=== PATIENT | male | born 1960 | race Caucasian/White ===

== ENCOUNTER 2018-03-23 01:44 | Inpatient (IN) | payer MEDICARE ==
[2018-03-23 02:08] VITALS: BP 131/78
[2018-03-23] MEDS ORDERED: Magnesium Hydroxide (MOM) 30 mL UDC PO PRN (03:15)
[2018-03-23] MEDS ORDERED: Maalox 30 mL Cup PO PRN (03:15)
[2018-03-23] MEDS: INSULIN ASPART SLIDING SCALE 100 UNITS/ML UNIT SUBQ SCH ×4 (06:51→21:08)
[2018-03-23] MEDS ORDERED: LISINOPRIL 2.5 MG PO SCH (09:00)
[2018-03-23] MEDS ORDERED: UBIDECARENONE 200 MG PO SCH (09:00)
[2018-03-23] MEDS: Multivitamin Tab PO SCH (09:40)
[2018-03-23 12:25] LABS: CHOLESTEROL 173 mg/dL (<200); HDL -HIGH DENSITY LIPOPROTEIN 23 mg/dL (23-92); TRIGLYCERIDES 220 mg/dL (<150)
--- NOTE | 2018-03-23 17:06 | History & Physical ---
ADMIT DATE: 03/23/2018 HISTORY OF PRESENT ILLNESS: The patient is a 57-year-old male with long history of CVA, hypertension, diabetes mellitus, depression, admitted to [facility] under Dr. Naranjo Said for evaluation and treatment. The patient denies any chest pain, shortness of breath, nausea, vomiting, fever or chills. PAST MEDICAL HISTORY: Significant for diabetes mellitus, hypertension, CVA, depression. PAST SURGICAL HISTORY: No recent surgery. ALLERGIES: None. MEDICATIONS: Follow admission reconciliation. SOCIAL HISTORY: No smoking, no alcohol, no drugs. FAMILY HISTORY: Noncontributory. REVIEW OF SYSTEMS: RENAL SYSTEM: No history of chronic renal disorder. CARDIOVASCULAR SYSTEM: No coronary artery disease. ENDOCRINE SYSTEM: He has history of diabetes mellitus. GASTROINTESTINAL SYSTEM: No upper or lower gastrointestinal bleed. NEUROLOGICAL: He has history of stroke with right-sided hemiparesis and hemiplegia. HEMATOLOGIC SYSTEM: No bleeding tendencies. GENITOURINARY: No dysuria or hematuria. PHYSICAL EXAMINATION: GENERAL: He is awake, alert, mildly confused. VITAL SIGNS: Temperature 97.8, heart rate 82, blood pressure 106/75. HEENT: Normocephalic. Pupils reactive to light and accommodation. Sclerae clear. NECK: Supple. Negative for lymphadenopathy, JVD or bruit. CHEST: Bilaterally normal. No rhonchi or wheezing. HEART: S1, S2 normal. No gallop rhythm. ABDOMEN: Soft, bowel sounds positive. EXTREMITIES: No edema. NEUROLOGIC: He is awake, alert, mildly confused. He has left side weakness. ASSESSMENT: 1. Hypertension. 2. Diabetes mellitus. 3. CVA. 4. Hyperlipidemia. 5. Depression. PLAN: The patient admitted to the hospital under Dr. Naranjo's service. Medical problems addressed during hospitalization, depression, problem to be addressed at discharge, diabetes mellitus, hypertension, CVA. The patient is medically stable for activity. Thank you, Dr. Naranjo, for asking me to see your patient. JOB# [id number]
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
[2018-03-24] MEDS: INSULIN ASPART SLIDING SCALE 100 UNITS/ML UNIT SUBQ SCH ×6 (06:47→20:33)
[2018-03-24] MEDS: Escitalopram Oxalate 5 mg Tab PO SCH (09:16)
[2018-03-24] MEDS: Multivitamin Tab PO SCH (09:17)
--- NOTE | 2018-03-24 22:31 | Internal Medicine Prog Note ---
Internal Medicine Subjective - Subjective Service Date: 03/24/18 Patient seen and examined:: with staff Patient is:: awake, verbal, in bed, talking Per staff patient has:: no adverse event Internal Medicine Objective - Results Recent Labs: Laboratory Last Values Triglycerides 220 mg/dL (<150) H 03/23/18 12:02 Cholesterol 173 mg/dL (<200) 03/23/18 12:02 LDL Cholesterol Direct 98 mg/dL (75-193) 03/23/18 12:02 HDL Cholesterol 23 mg/dL (23-92) 03/23/18 12:02 - Physical Exam Vitals and I&O: Vital Signs Temp 98.5 F 03/24/18 15:41 Pulse 89 03/24/18 15:41 Resp 19 03/24/18 15:41 BP 119/81 03/24/18 15:41 Pulse Ox 96 03/24/18 15:41 Intake & Output 03/24/18 03/24/18 03/25/18 06:59 18:59 06:59 Intake Total 500 Balance 500 Intake: Oral 500 Other: # Voids 2 # Bowel Movements 1 Stool Characteristics Formed Active Medications: Current Medications Acetaminophen (Tylenol) 650 mg PO Q4HR PRN PRN Reason: Mild Pain / Temp above 100 Stop: 05/22/18 03:14 Last Admin: 03/23/18 21:34 Dose: 650 mg Al Hydrox/Mg Hydrox/Simethicone (Maalox) 30 ml PO Q4HR PRN PRN Reason: GI DISTRESS Stop: 05/22/18 03:14 Cilostazol (Pletal) 100 mg PO BID [facility] Stop: 05/22/18 08:59 Last Admin: 03/24/18 18:31 Dose: Not Given Clopidogrel Bisulfate (Plavix) 75 mg PO DAILY [facility] Stop: 05/22/18 08:59 Last Admin: 03/24/18 09:16 Dose: 75 mg Escitalopram Oxalate (Lexapro) 5 mg PO DAILY [facility]; Protocol Stop: 05/23/18 08:59 Last Admin: 03/24/18 09:16 Dose: 5 mg Insulin Aspart (Novolog Insulin Sliding Scale) 0 units SUBQ ACHS [facility]; Protocol Stop: 05/22/18 07:29 Last Admin: 03/24/18 20:33 Dose: 2 units Labetalol HCl (Trandate) 100 mg PO QPM [facility] Stop: 05/22/18 16:59 Last Admin: 03/24/18 18:31 Dose: Not Given Labetalol HCl (Trandate) 200 mg PO DAILY [facility] Stop: 05/22/18 08:59 Last Admin: 03/24/18 09:24 Dose: 200 mg Lisinopril (Zestril) 2.5 mg PO DAILY [facility] Stop: 05/22/18 08:59 Last Admin: 03/24/18 09:17 Dose: 2.5 mg Lorazepam (Ativan) 0.5 mg PO Q4HR PRN; Protocol PRN Reason: Anxiety Stop: 04/22/18 03:14 Magnesium Hydroxide (Milk Of Magnesia) 30 ml PO HS PRN PRN Reason: Constipation Miscellaneous (Dulaglutide [Trulicity]) 1.5 mg SUBQ QSAT [facility] Stop: 05/26/18 08:59 Multivitamins/Vitamin C (Theragran) 1 tab PO DAILY [facility] Stop: 05/22/18 08:59 Last Admin: 03/24/18 09:17 Dose: 1 tab Simvastatin (Zocor) 10 mg PO HS [facility] Stop: 05/22/18 20:59 Last Admin: 03/24/18 20:34 Dose: 10 mg Tramadol HCl (Ultram) 50 mg PO BID [facility] Stop: 05/22/18 08:59 Last Admin: 03/24/18 18:30 Dose: Not Given Trazodone HCl (Desyrel) 25 mg PO HS [facility]; Protocol Stop: 05/23/18 20:59 Last Admin: 03/24/18 20:32 Dose: 25 mg Zolpidem Tartrate (Ambien) 5 mg PO HS PRN PRN Reason: Insomnia Stop: 05/22/18 03:14 Last Admin: 03/24/18 20:34 Dose: 5 mg General: demented HEENT: NC/AT, PERRLA, EOMI, anicteric sclerae, throat clear Neck: Supple, No JVD, No thyromegaly, +2 carotid pulse wo bruit, No LAD Lungs: CTAB Cardiovascular: Normal S1, Normal S2, without murmur Abdomen: non-tender, non-distended Extremities: clear Neurological: no change Internal Medicine Assmt/Plan - Assessment Assessment: 1.DM. 2.HTN. 3.CVA. 4.PSYCHOSIS. - Plan Plan: CONTINUE ON CURRENT MEDICATION AND DIET.
[2018-03-25] MEDS: INSULIN ASPART SLIDING SCALE 100 UNITS/ML UNIT SUBQ SCH ×4 (06:52→21:17)
[2018-03-25] MEDS: Multivitamin Tab PO SCH (09:36)
[2018-03-25] MEDS: Escitalopram Oxalate 5 mg Tab PO SCH (09:36)
--- NOTE | 2018-03-25 23:41 | Internal Medicine Prog Note ---
Internal Medicine Subjective - Subjective Service Date: 03/25/18 Patient seen and examined:: without staff Patient is:: awake, verbal, in bed, talking Per staff patient has:: no adverse event Internal Medicine Objective - Results Recent Labs: Laboratory Last Values Triglycerides 220 mg/dL (<150) H 03/23/18 12:02 Cholesterol 173 mg/dL (<200) 03/23/18 12:02 LDL Cholesterol Direct 98 mg/dL (75-193) 03/23/18 12:02 HDL Cholesterol 23 mg/dL (23-92) 03/23/18 12:02 - Physical Exam Vitals and I&O: Vital Signs Temp 98.3 F 03/25/18 17:58 Pulse 82 03/25/18 17:58 Resp 20 03/25/18 17:58 BP 113/70 03/25/18 17:58 Pulse Ox 97 03/25/18 17:58 Active Medications: Current Medications Acetaminophen (Tylenol) 650 mg PO Q4HR PRN PRN Reason: Mild Pain / Temp above 100 Stop: 05/22/18 03:14 Last Admin: 03/23/18 21:34 Dose: 650 mg Al Hydrox/Mg Hydrox/Simethicone (Maalox) 30 ml PO Q4HR PRN PRN Reason: GI DISTRESS Stop: 05/22/18 03:14 Cilostazol (Pletal) 100 mg PO BID [facility] Stop: 05/22/18 08:59 Last Admin: 03/25/18 17:14 Dose: 100 mg Clopidogrel Bisulfate (Plavix) 75 mg PO DAILY [facility] Stop: 05/22/18 08:59 Last Admin: 03/25/18 09:36 Dose: 75 mg Escitalopram Oxalate (Lexapro) 5 mg PO DAILY [facility]; Protocol Stop: 05/23/18 08:59 Last Admin: 03/25/18 09:36 Dose: 5 mg Insulin Aspart (Novolog Insulin Sliding Scale) 0 units SUBQ ACHS [facility]; Protocol Stop: 05/22/18 07:29 Last Admin: 03/25/18 21:17 Dose: 4 units Labetalol HCl (Trandate) 100 mg PO QPM [facility] Stop: 05/22/18 16:59 Last Admin: 03/25/18 17:15 Dose: 100 mg Labetalol HCl (Trandate) 200 mg PO DAILY [facility] Stop: 05/22/18 08:59 Last Admin: 03/25/18 09:44 Dose: 200 mg Lisinopril (Zestril) 2.5 mg PO DAILY [facility] Stop: 05/22/18 08:59 Last Admin: 03/25/18 09:37 Dose: 2.5 mg Lorazepam (Ativan) 0.5 mg PO Q4HR PRN; Protocol PRN Reason: Anxiety Stop: 04/22/18 03:14 Magnesium Hydroxide (Milk Of Magnesia) 30 ml PO HS PRN PRN Reason: Constipation Miscellaneous (Dulaglutide [Trulicity]) 1.5 mg SUBQ QSAT [facility] Stop: 05/26/18 08:59 Multivitamins/Vitamin C (Theragran) 1 tab PO DAILY [facility] Stop: 05/22/18 08:59 Last Admin: 03/25/18 09:36 Dose: 1 tab Simvastatin (Zocor) 10 mg PO HS [facility] Stop: 05/22/18 20:59 Last Admin: 03/25/18 21:08 Dose: 10 mg Tramadol HCl (Ultram) 50 mg PO BID [facility] Stop: 05/22/18 08:59 Last Admin: 03/25/18 18:24 Dose: Not Given Zolpidem Tartrate (Ambien) 5 mg PO HS PRN PRN Reason: Insomnia Stop: 05/22/18 03:14 Last Admin: 03/25/18 21:08 Dose: 5 mg General: demented HEENT: NC/AT, PERRLA, EOMI, anicteric sclerae, throat clear Neck: Supple, No JVD, No thyromegaly, +2 carotid pulse wo bruit, No LAD Lungs: CTAB Cardiovascular: Normal S1, Normal S2, without murmur Abdomen: non-tender, non-distended Extremities: clear Neurological: no change Internal Medicine Assmt/Plan - Assessment Assessment: 1.DM. 2.HTN. 3.CVA. 4.PSYCHOSIS. - Plan Plan: CONTINUE ON CURRENT MEDICATION AND DIET.
[2018-03-26] MEDS: INSULIN ASPART SLIDING SCALE 100 UNITS/ML UNIT SUBQ SCH ×4 (06:57→20:58)
[2018-03-26] MEDS: Escitalopram Oxalate 5 mg Tab PO SCH (08:54)
[2018-03-26] MEDS: Multivitamin Tab PO SCH (08:55)
[2018-03-26] MEDS: Insulin Detemir 100 units/mL 10mL Vial SUBQ SCH (20:59)
--- NOTE | 2018-03-26 22:32 | Internal Medicine Prog Note ---
Internal Medicine Subjective - Subjective Service Date: 03/26/18 Patient seen and examined:: with staff Patient is:: awake, verbal, in bed, talking Per staff patient has:: no adverse event Internal Medicine Objective - Results Recent Labs: Laboratory Last Values Triglycerides 220 mg/dL (<150) H 03/23/18 12:02 Cholesterol 173 mg/dL (<200) 03/23/18 12:02 LDL Cholesterol Direct 98 mg/dL (75-193) 03/23/18 12:02 HDL Cholesterol 23 mg/dL (23-92) 03/23/18 12:02 - Physical Exam Vitals and I&O: Vital Signs Temp 97.9 F 03/26/18 14:00 Pulse 88 03/26/18 16:34 Resp 20 03/26/18 19:47 BP 96/68 03/26/18 16:34 Pulse Ox 96 03/26/18 14:00 Intake & Output 03/26/18 03/26/18 03/27/18 06:59 18:59 06:59 Intake Total 500 1600 Balance 500 1600 Intake: Oral 500 1600 Other: # Voids 3 4 # Bowel Movements 0 0 Active Medications: Current Medications Acetaminophen (Tylenol) 650 mg PO Q4HR PRN PRN Reason: Mild Pain / Temp above 100 Stop: 05/22/18 03:14 Last Admin: 03/23/18 21:34 Dose: 650 mg Al Hydrox/Mg Hydrox/Simethicone (Maalox) 30 ml PO Q4HR PRN PRN Reason: GI DISTRESS Stop: 05/22/18 03:14 Cilostazol (Pletal) 100 mg PO BID [facility] Stop: 05/22/18 08:59 Last Admin: 03/26/18 16:35 Dose: 100 mg Clopidogrel Bisulfate (Plavix) 75 mg PO DAILY [facility] Stop: 05/22/18 08:59 Last Admin: 03/26/18 08:56 Dose: 75 mg Escitalopram Oxalate (Lexapro) 5 mg PO DAILY [facility]; Protocol Stop: 05/23/18 08:59 Last Admin: 03/26/18 08:54 Dose: 5 mg Insulin Aspart (Novolog Insulin Sliding Scale) 0 units SUBQ ACHS [facility]; Protocol Stop: 05/22/18 07:29 Last Admin: 03/26/18 20:58 Dose: Not Given Insulin Detemir (Levemir Insulin) 10 units SUBQ HS [facility] Stop: 05/25/18 20:59 Last Admin: 03/26/18 20:59 Dose: 10 units Labetalol HCl (Trandate) 100 mg PO QPM [facility] Stop: 05/22/18 16:59 Last Admin: 03/26/18 16:34 Dose: Not Given Labetalol HCl (Trandate) 200 mg PO DAILY [facility] Stop: 05/22/18 08:59 Last Admin: 03/26/18 08:56 Dose: 200 mg Lisinopril (Zestril) 2.5 mg PO DAILY [facility] Stop: 05/22/18 08:59 Last Admin: 03/26/18 08:57 Dose: 2.5 mg Lorazepam (Ativan) 0.5 mg PO Q4HR PRN; Protocol PRN Reason: Anxiety Stop: 04/22/18 03:14 Magnesium Hydroxide (Milk Of Magnesia) 30 ml PO HS PRN PRN Reason: Constipation Multivitamins/Vitamin C (Theragran) 1 tab PO DAILY [facility] Stop: 05/22/18 08:59 Last Admin: 03/26/18 08:55 Dose: 1 tab Simvastatin (Zocor) 10 mg PO HS [facility] Stop: 05/22/18 20:59 Last Admin: 03/26/18 21:01 Dose: 10 mg Tramadol HCl (Ultram) 50 mg PO BID [facility] Stop: 05/22/18 08:59 Last Admin: 03/26/18 16:35 Dose: 50 mg Zolpidem Tartrate (Ambien) 5 mg PO HS PRN PRN Reason: Insomnia Stop: 05/22/18 03:14 Last Admin: 03/26/18 21:01 Dose: 5 mg General: demented HEENT: NC/AT, PERRLA, EOMI, anicteric sclerae, throat clear Neck: Supple, No JVD, No thyromegaly, +2 carotid pulse wo bruit, No LAD Lungs: CTAB Cardiovascular: Normal S1, Normal S2, without murmur Abdomen: non-tender, non-distended Extremities: clear Neurological: no change Internal Medicine Assmt/Plan - Assessment Assessment: 1.DM. 2.HTN. 3.CVA. 4.PSYCHOSIS. - Plan Plan: CONTINUE ON CURRENT MEDICATION AND DIET. Nutritional Asmnt/Malnutr-PDOC - Dietary Evaluation Malnutrition Findings (Please click <Entered> for more info): Nutritional Asmnt/Malnutrition Start: 03/26/18 12: 03 Text: Status: Complete Freq: Protocol: Document 03/26/18 12:03 CASSIDY (Rec: 03/26/18 12:10 [email or web address]) Nutritional Asmnt/Malnutrition Patient General Information Nutritional Screening Moderate Risk Diagnosis gravely disabled Pertinent Medical Hx/Surgical Hx Dm, HTN, CVA, depression Subjective Information Pt seen on wheelchair in his room, awake and alert. Pt provided food preference, no pork/chicken/beef, likes fish. Per EMR, PO intake 100%. Current Diet Order/ Nutrition Support cardiac, diabetic diet Pertinent Medications novolog, theragran Pertinent Labs 03/23 Triglycerides 220 Nutritional Hx/Data Height 1.78 m Height (Calculated Centimeters) 177.8 Current Weight (lbs) 95.708 kg Weight (Calculated Kilograms) 95.7 Weight (Calculated Grams) 27388.0 [place] Body Weight 166 Body Mass Index (BMI) 30.2 Weight Status Obese GI Symptoms GI Symptoms None Last BM 03/23 Difficult in: None Skin Integrity/Comment: intact Current %PO Good (75-100%) Estimated Nutritional Goals BEE in Kcals: Adj wt of IBW Calories/Kcals/Kg 25-30 Kcals Calculated 2591-2611 Protein: Adj wt of IBW Protein g/k Protein Calculated 81 Fluid: ml 2024-2430ml (1ml/kcal) Nutritional Problem No current Nutrition Prob Problem N/A Malnutrition Alert Is there a minimum of two criteria No selected? Query Text:Check all the applicable criteria. A minimum of two criteria are recommended for diagnosis of either severe or non-severe malnutrition. Malnutrition Related to Morbid Obesity Malnutrition related to morbid obesity No Intervention/Recommendation Comments 1. Continue with cardiac CCHO diet as ordered. Diet profile updated. 2. Monitor PO intake, wt, labs and skin integrity 3. F/U as low risk in 7 days, 04/02 Expected Outcomes/Goals Expected Outcomes/Goals 1. PO intake to meet at least 75% of nutritional needs. 2. Wt stability, skin to remain intact, labs to approach WNL. Reviewed by Francine Hernández RD
[2018-03-27] MEDS: INSULIN ASPART SLIDING SCALE 100 UNITS/ML UNIT SUBQ SCH ×4 (06:42→21:27)
[2018-03-27] MEDS ORDERED: DULAGLUTIDE 1.5 MG SUBQ SCH (09:00)
[2018-03-27] MEDS: Escitalopram Oxalate 5 mg Tab PO SCH (09:49)
[2018-03-27] MEDS: Multivitamin Tab PO SCH (09:50)
--- NOTE | 2018-03-27 18:04 | Internal Medicine Prog Note ---
Internal Medicine Subjective - Subjective Service Date: 03/27/18 Patient seen and examined:: with staff Patient is:: awake, verbal, in bed, talking Per staff patient has:: no adverse event Internal Medicine Objective - Results Recent Labs: Laboratory Last Values Triglycerides 220 mg/dL (<150) H 03/23/18 12:02 Cholesterol 173 mg/dL (<200) 03/23/18 12:02 LDL Cholesterol Direct 98 mg/dL (75-193) 03/23/18 12:02 HDL Cholesterol 23 mg/dL (23-92) 03/23/18 12:02 - Physical Exam Vitals and I&O: Vital Signs Temp 98.8 F 03/27/18 15:58 Pulse 78 03/27/18 16:18 Resp 20 03/27/18 15:58 BP 133/87 03/27/18 16:18 Pulse Ox 98 03/27/18 15:58 Intake & Output 03/26/18 03/27/18 03/27/18 18:59 06:59 18:59 Intake Total 1600 Balance 1600 Intake: Oral 1600 Other: # Voids 4 # Bowel Movements 0 Active Medications: Current Medications Acetaminophen (Tylenol) 650 mg PO Q4HR PRN PRN Reason: Mild Pain / Temp above 100 Stop: 05/22/18 03:14 Last Admin: 03/23/18 21:34 Dose: 650 mg Al Hydrox/Mg Hydrox/Simethicone (Maalox) 30 ml PO Q4HR PRN PRN Reason: GI DISTRESS Stop: 05/22/18 03:14 Cilostazol (Pletal) 100 mg PO BID [facility] Stop: 05/22/18 08:59 Last Admin: 03/27/18 16:18 Dose: 100 mg Clopidogrel Bisulfate (Plavix) 75 mg PO DAILY [facility] Stop: 05/22/18 08:59 Last Admin: 03/27/18 09:49 Dose: 75 mg Escitalopram Oxalate (Lexapro) 5 mg PO DAILY [facility]; Protocol Stop: 05/23/18 08:59 Last Admin: 03/27/18 09:49 Dose: 5 mg Insulin Aspart (Novolog Insulin Sliding Scale) 0 units SUBQ ACHS [facility]; Protocol Stop: 05/22/18 07:29 Last Admin: 03/27/18 16:17 Dose: 2 units Insulin Detemir (Levemir Insulin) 10 units SUBQ HS [facility] Stop: 05/25/18 20:59 Last Admin: 03/26/18 20:59 Dose: 10 units Labetalol HCl (Trandate) 100 mg PO QPM [facility] Stop: 05/22/18 16:59 Last Admin: 03/27/18 16:18 Dose: 100 mg Labetalol HCl (Trandate) 200 mg PO DAILY [facility] Stop: 05/22/18 08:59 Last Admin: 03/27/18 09:42 Dose: 200 mg Lisinopril (Zestril) 2.5 mg PO DAILY [facility] Stop: 05/22/18 08:59 Last Admin: 03/27/18 09:49 Dose: 2.5 mg Lorazepam (Ativan) 0.5 mg PO Q4HR PRN; Protocol PRN Reason: Anxiety Stop: 04/22/18 03:14 Magnesium Hydroxide (Milk Of Magnesia) 30 ml PO HS PRN PRN Reason: Constipation Multivitamins/Vitamin C (Theragran) 1 tab PO DAILY [facility] Stop: 05/22/18 08:59 Last Admin: 03/27/18 09:50 Dose: 1 tab Simvastatin (Zocor) 10 mg PO HS [facility] Stop: 05/22/18 20:59 Last Admin: 03/26/18 21:01 Dose: 10 mg Tramadol HCl (Ultram) 50 mg PO BID [facility] Stop: 05/22/18 08:59 Last Admin: 03/27/18 16:18 Dose: 50 mg Zolpidem Tartrate (Ambien) 5 mg PO HS PRN PRN Reason: Insomnia Stop: 05/22/18 03:14 Last Admin: 03/26/18 21:01 Dose: 5 mg General: demented HEENT: NC/AT, PERRLA, EOMI, anicteric sclerae, throat clear Neck: Supple, No JVD, No thyromegaly, +2 carotid pulse wo bruit, No LAD Lungs: CTAB Cardiovascular: Normal S1, Normal S2, without murmur Abdomen: non-tender, non-distended Extremities: clear Neurological: no change Internal Medicine Assmt/Plan - Assessment Assessment: 1.DM. 2.HTN. 3.CVA. 4.PSYCHOSIS. - Plan Plan: CONTINUE ON CURRENT MEDICATION AND DIET. Nutritional Asmnt/Malnutr-PDOC - Dietary Evaluation Malnutrition Findings (Please click <Entered> for more info): Nutritional Asmnt/Malnutrition Start: 03/26/18 12: 03 Text: Status: Complete Freq: Protocol: Document 03/26/18 12:03 CASSIDY (Rec: 03/26/18 12:10 [email or web address]) Nutritional Asmnt/Malnutrition Patient General Information Nutritional Screening Moderate Risk Diagnosis gravely disabled Pertinent Medical Hx/Surgical Hx Dm, HTN, CVA, depression Subjective Information Pt seen on wheelchair in his room, awake and alert. Pt provided food preference, no pork/chicken/beef, likes fish. Per EMR, PO intake 100%. Current Diet Order/ Nutrition Support cardiac, diabetic diet Pertinent Medications novolog, theragran Pertinent Labs 03/23 Triglycerides 220 Nutritional Hx/Data Height 1.78 m Height (Calculated Centimeters) 177.8 Current Weight (lbs) 95.708 kg Weight (Calculated Kilograms) 95.7 Weight (Calculated Grams) 50906.0 [place] Body Weight 166 Body Mass Index (BMI) 30.2 Weight Status Obese GI Symptoms GI Symptoms None Last BM 03/23 Difficult in: None Skin Integrity/Comment: intact Current %PO Good (75-100%) Estimated Nutritional Goals BEE in Kcals: Adj wt of IBW Calories/Kcals/Kg 25-30 Kcals Calculated 5436-8173 Protein: Adj wt of IBW Protein g/k Protein Calculated 81 Fluid: ml 5-2430ml (1ml/kcal) Nutritional Problem No current Nutrition Prob Problem N/A Malnutrition Alert Is there a minimum of two criteria No selected? Query Text:Check all the applicable criteria. A minimum of two criteria are recommended for diagnosis of either severe or non-severe malnutrition. Malnutrition Related to Morbid Obesity Malnutrition related to morbid obesity No Intervention/Recommendation Comments 1. Continue with cardiac CCHO diet as ordered. Diet profile updated. 2. Monitor PO intake, wt, labs and skin integrity 3. F/U as low risk in 7 days, 04/02 Expected Outcomes/Goals Expected Outcomes/Goals 1. PO intake to meet at least 75% of nutritional needs. 2. Wt stability, skin to remain intact, labs to approach WNL. Reviewed by Francine Hernández RD
[2018-03-27] MEDS: Insulin Detemir 100 units/mL 10mL Vial SUBQ SCH (21:28)
[2018-03-28] MEDS: INSULIN ASPART SLIDING SCALE 100 UNITS/ML UNIT SUBQ SCH ×4 (06:57→21:28)
[2018-03-28] MEDS: Escitalopram Oxalate 5 mg Tab PO SCH (09:08)
[2018-03-28] MEDS: Multivitamin Tab PO SCH (09:10)
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
--- NOTE | 2018-03-28 18:57 | Internal Medicine Prog Note ---
Internal Medicine Subjective - Subjective Service Date: 03/28/18 Patient seen and examined:: with staff Patient is:: awake, verbal, in bed, talking Per staff patient has:: no adverse event Internal Medicine Objective - Results Recent Labs: Laboratory Last Values Triglycerides 220 mg/dL (<150) H 03/23/18 12:02 Cholesterol 173 mg/dL (<200) 03/23/18 12:02 LDL Cholesterol Direct 98 mg/dL (75-193) 03/23/18 12:02 HDL Cholesterol 23 mg/dL (23-92) 03/23/18 12:02 - Physical Exam Vitals and I&O: Vital Signs Temp 98.0 F 03/28/18 14:00 Pulse 79 03/28/18 17:04 Resp 18 03/28/18 14:00 BP 123/63 03/28/18 17:04 Pulse Ox 97 03/28/18 14:00 Intake & Output 03/27/18 03/28/18 03/28/18 18:59 06:59 18:59 Intake Total 480 Balance 480 Intake: Oral 480 Other: # Voids 2 Active Medications: Current Medications Acetaminophen (Tylenol) 650 mg PO Q4HR PRN PRN Reason: Mild Pain / Temp above 100 Stop: 05/22/18 03:14 Last Admin: 03/23/18 21:34 Dose: 650 mg Al Hydrox/Mg Hydrox/Simethicone (Maalox) 30 ml PO Q4HR PRN PRN Reason: GI DISTRESS Stop: 05/22/18 03:14 Alprazolam (Xanax) 0.5 mg PO HS PRN; Protocol PRN Reason: Anxiety Stop: 05/27/18 20:59 Cilostazol (Pletal) 100 mg PO BID [facility] Stop: 05/22/18 08:59 Last Admin: 03/28/18 17:04 Dose: 100 mg Clopidogrel Bisulfate (Plavix) 75 mg PO DAILY [facility] Stop: 05/22/18 08:59 Last Admin: 03/28/18 09:08 Dose: 75 mg Escitalopram Oxalate (Lexapro) 5 mg PO DAILY [facility]; Protocol Stop: 05/23/18 08:59 Last Admin: 03/28/18 09:08 Dose: 5 mg Insulin Aspart (Novolog Insulin Sliding Scale) 0 units SUBQ ACHS [facility]; Protocol Stop: 05/22/18 07:29 Last Admin: 03/28/18 17:03 Dose: 2 units Insulin Detemir (Levemir Insulin) 10 units SUBQ HS [facility] Stop: 05/25/18 20:59 Last Admin: 03/27/18 21:28 Dose: 10 units Labetalol HCl (Trandate) 100 mg PO QPM [facility] Stop: 05/22/18 16:59 Last Admin: 03/28/18 17:04 Dose: 100 mg Labetalol HCl (Trandate) 200 mg PO DAILY [facility] Stop: 05/22/18 08:59 Last Admin: 03/28/18 09:08 Dose: 200 mg Lisinopril (Zestril) 2.5 mg PO DAILY [facility] Stop: 05/22/18 08:59 Last Admin: 03/28/18 09:10 Dose: 2.5 mg Lorazepam (Ativan) 0.5 mg PO Q4HR PRN; Protocol PRN Reason: Anxiety Stop: 04/22/18 03:14 Multivitamins/Vitamin C (Theragran) 1 tab PO DAILY [facility] Stop: 05/22/18 08:59 Last Admin: 03/28/18 09:10 Dose: 1 tab Simvastatin (Zocor) 10 mg PO HS [facility] Stop: 05/22/18 20:59 Last Admin: 03/27/18 21:29 Dose: 10 mg Tramadol HCl (Ultram) 50 mg PO BID [facility] Stop: 05/22/18 08:59 Last Admin: 03/28/18 17:04 Dose: 50 mg Zolpidem Tartrate (Ambien) 5 mg PO HS PRN PRN Reason: Insomnia Stop: 05/22/18 03:14 Last Admin: 03/27/18 21:29 Dose: 5 mg General: demented HEENT: NC/AT, PERRLA, EOMI, anicteric sclerae, throat clear Neck: Supple, No JVD, No thyromegaly, +2 carotid pulse wo bruit, No LAD Lungs: CTAB Cardiovascular: Normal S1, Normal S2, without murmur Abdomen: non-tender, non-distended Extremities: clear Neurological: no change Internal Medicine Assmt/Plan - Assessment Assessment: 1.DM. 2.HTN. 3.CVA. 4.PSYCHOSIS. - Plan Plan: CONTINUE ON CURRENT MEDICATION AND DIET. Nutritional Asmnt/Malnutr-PDOC - Dietary Evaluation Malnutrition Findings (Please click <Entered> for more info): Nutritional Asmnt/Malnutrition Start: 03/26/18 12: 03 Text: Status: Complete Freq: Protocol: Document 03/26/18 12:03 CASSIDY (Rec: 03/26/18 12:10 [email or web address] [id number]) Nutritional Asmnt/Malnutrition Patient General Information Nutritional Screening Moderate Risk Diagnosis gravely disabled Pertinent Medical Hx/Surgical Hx Dm, HTN, CVA, depression Subjective Information Pt seen on wheelchair in his room, awake and alert. Pt provided food preference, no pork/chicken/beef, likes fish. Per EMR, PO intake 100%. Current Diet Order/ Nutrition Support cardiac, diabetic diet Pertinent Medications novolog, theragran Pertinent Labs 03/23 Triglycerides 220 Nutritional Hx/Data Height 1.78 m Height (Calculated Centimeters) 177.8 Current Weight (lbs) 95.708 kg Weight (Calculated Kilograms) 95.7 Weight (Calculated Grams) 10479.0 [place] Body Weight 166 Body Mass Index (BMI) 30.2 Weight Status Obese GI Symptoms GI Symptoms None Last BM 03/23 Difficult in: None Skin Integrity/Comment: intact Current %PO Good (75-100%) Estimated Nutritional Goals BEE in Kcals: Adj wt of IBW Calories/Kcals/Kg 25-30 Kcals Calculated 0591-8808 Protein: Adj wt of IBW Protein g/k Protein Calculated 81 Fluid: ml 2024-2430ml (1ml/kcal) Nutritional Problem No current Nutrition Prob Problem N/A Malnutrition Alert Is there a minimum of two criteria No selected? Query Text:Check all the applicable criteria. A minimum of two criteria are recommended for diagnosis of either severe or non-severe malnutrition. Malnutrition Related to Morbid Obesity Malnutrition related to morbid obesity No Intervention/Recommendation Comments 1. Continue with cardiac CCHO diet as ordered. Diet profile updated. 2. Monitor PO intake, wt, labs and skin integrity 3. F/U as low risk in 7 days, 04/02 Expected Outcomes/Goals Expected Outcomes/Goals 1. PO intake to meet at least 75% of nutritional needs. 2. Wt stability, skin to remain intact, labs to approach WNL. Reviewed by Francine Hernández RD
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
[2018-03-28] MEDS: Insulin Detemir 100 units/mL 10mL Vial SUBQ SCH (21:30)
--- NOTE | 2018-03-28 21:39 | Progress Notes ---
DATE: 03/27/2018 SUBJECTIVE: Chart reviewed and the patient interviewed. Also, discussed the patient's condition with the staff and reviewed records and labs. The patient did not leave the hospital because the patient was not discharged yesterday to [facility] as planned. The patient is still anxious and is still depressed and he is disappointed for not leaving the hospital and not going to either [facility] or to his home. At the same time, the patient is cooperative and compliant with taking his medications with no side effects of medications. ASSESSMENT: The patient is still depressed. TREATMENT PLAN: Continue to monitor his behavior and continue to work on discharge plans and on placement issue. JOB# [id number]
--- NOTE | 2018-03-28 21:55 | Progress Notes ---
DATE: 03/28/2018 SUBJECTIVE: Chart reviewed and the patient interviewed. Also, discussed the patient's condition with the staff and reviewed records and labs. The patient is still anxious and he is still in a depressed mood. The patient also said that his anxiety level increased at night and that affects his sleep and he is not able to sleep at night. He said that Ambien is not helping. He used to take Xanax at night. Otherwise, the patient is cooperative and compliant with taking medications with no side effects. ASSESSMENT: The patient is still depressed and waiting for placement. TREATMENT PLAN: We will add Xanax dose of 0.5 mg at bedtime. Also, continue to work on discharge plans and placement issue. JOB# [id number]
[2018-03-29] MEDS: INSULIN ASPART SLIDING SCALE 100 UNITS/ML UNIT SUBQ SCH ×3 (06:41→16:46)
[2018-03-29] MEDS: Escitalopram Oxalate 5 mg Tab PO SCH (09:48)
[2018-03-29] MEDS: Multivitamin Tab PO SCH (09:48)
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
== END 2018-03-29 17:55 | DRG 885 ==
LOC: GERO2 01:44
PROVIDERS: ADMIT Psychiatry & Neurology Psychiatry; ATTEND Psychiatry & Neurology Psychiatry
DX: F33.2 Major depressive disorder, recurrent severe without psychotic features (principal); I69.354 Hemiplegia and hemiparesis following cerebral infarction affecting left non-dominant side; E11.9 Type 2 diabetes mellitus without complications; I10 Essential (primary) hypertension; G47.00 Insomnia, unspecified; E78.5 Hyperlipidemia, unspecified; F41.9 Anxiety disorder, unspecified; Z91.041 Radiographic dye allergy status; Z79.4 Long term (current) use of insulin
CPT/HCPCS: 36415-UA; 80061-TC; 83036-90; J1815; Z7610

== ENCOUNTER 2018-12-16 19:19 | Emergency (ER) | payer MEDICARE, MEDICAID ==
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
== END 2018-12-16 21:46 | disposition home or self-care (01) ==
LOC: ER 19:19
DX: R45.6 Violent behavior (principal); Z86.73 Personal history of transient ischemic attack (TIA), and cerebral infarction without residual deficits; Z91.041 Radiographic dye allergy status
CPT/HCPCS: Z7502

== ENCOUNTER 2018-12-20 11:50 | Inpatient (IN) | payer MEDICARE, MEDICAID ==
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
[2018-12-20 15:09] LABS: URINE SOURCE CLEAN C
[2018-12-20 15:12] LABS: URINE BILIRUBIN NEGATIVE (NEGATIVE); URINE BLOOD NEGATIVE (NEGATIVE); URINE GLUCOSE (UA) NEGATIVE (NEGATIVE); URINE KETONE NEGATIVE (NEGATIVE); URINE LEUKOCYTE ESTERASE NEGATIVE (NEGATIVE); URINE NITRATE NEGATIVE (NEGATIVE); URINE PH 6.5 (4.6 - 8.0); URINE PROTEIN NEGATIVE (NEGATIVE)
[2018-12-20 15:29] LABS: URINE CLARITY CLEAR (CLEAR); URINE COLOR YELLOW; URINE MICROSCOPIC INDICATED? YES
[2018-12-20 15:38] LABS: URINE BACTERIA FEW /hpf (NONE SEEN); URINE EPITHELIAL CELLS FEW /lpf (FEW); URINE RBC 0-2 /hpf (0-5); URINE WBC 0-2 /hpf (0-5)
[2018-12-20 15:39] LABS: % BASOPHILS 3.2 % (0.0-2.0); % EOSINOPHILS 3.8 % (0.0-5.0); % LYMPHOCYTES 28.9 % (20.0-50.0); % MONOCYTES 10.4 % (2.0-10.0); % NEUTROPHILS 53.7 % (40.0-80.0); BASOPHILE ABSOLUTE 0.3 Th/cumm (0-0.2); EOSINOPHILE ABSOLUTE 0.3 Th/cmm (0.1-0.4); HEMATOCRIT 43.8 % (41.0-60); HEMOGLOBIN 14.5 gm/dL (12-16); LYMPHOCYTE ABSOLUTE 2.7 Th/cmm (1.5-3.0); MEAN CELL VOLUME 89.3 fl (80-99); MEAN CORPUSCULAR HEMOGLOBIN 29.6 pg (26.0-30.0); MEAN CORPUSCULAR HGB CONC 33.2 pg (28.0-36.0); NEUTROPHILE ABSOLUTE 4.9 Th/cmm (1.8-8.0); PLATELET COUNT 347 Th/cmm (150-400); RED BLOOD COUNT 4.91 Mil/cmm (4.30-5.70); RED CELL DISTRIBUTION WIDTH 13.2 % (11.5-20.0); WHITE BLOOD COUNT 9.2 Th/cmm (4.8-10.8)
[2018-12-20 15:54] LABS: INR 1.06 (0.5-1.4)
[2018-12-20 15:57] LABS: ALB/GLOB RATIO 1.3 (1.0-1.8); ALKALINE PHOSPHATASE 62 U/L (34-104); ANION GAP 11.6 (7.0-16.0); BILIRUBIN,TOTAL 0.6 mg/dL (0.3-1.0); BUN - UREA NITROGEN 18 mg/dL (7-25); CALCIUM SERUM 9.4 mg/dL (8.6-10.3); CARBON DIOXIDE 25.3 mEq/L (21.0-31.0); CHLORIDE 104 mEq/L (98-107); GFR AFRICAN-AMERICAN > 60.0 ml/min (>90); GFR NON AFRICAN-AMERICAN > 60.0 ml/min; GLUCOSE 127 mg/dL (70-105); POTASSIUM SERUM 3.9 mEq/L (3.5-5.1); SGOT 13 U/L (13-39); SGPT/ALT 15 U/L (7-52); SODIUM SERUM 137 mEq/L (136-145); TOTAL PROTEIN,SERUM 7.2 gm/dL (6.0-8.3)
[2018-12-20] MEDS ORDERED: Magnesium Hydroxide (MOM) 30 mL UDC PO PRN ×2 (17:31→21:03)
[2018-12-20] MEDS ORDERED: Maalox 30 mL Cup PO PRN ×2 (17:31→21:03)
[2018-12-20 18:08] VITALS: BP 134/75
[2018-12-20 19:27] LABS: CHOLESTEROL 145 mg/dL (<200); HDL -HIGH DENSITY LIPOPROTEIN 26 mg/dL (23-92); TRIGLYCERIDES 118 mg/dL (<150)
[2018-12-20] MEDS ORDERED: Fluticasone Propionate Nasal 1 SPR SPR NS PRN (21:03)
[2018-12-20] MEDS ORDERED: GLUCAGON HCl 1 MG KIT IM PRN ×2 (21:03→21:09)
[2018-12-20] MEDS ORDERED: [UNRECOGNIZED DRUG - OTHER] PO PRN (21:03)
[2018-12-20] MEDS ORDERED: Dextrose 50% 50 mL Abboject IVP PRN (21:09)
--- NOTE | 2018-12-20 21:33 | History & Physical ---
ADMIT DATE: 12/20/2018 HISTORY OF PRESENT ILLNESS: The patient is a 58-year-old male with long history of hypertension, diabetes mellitus, CVA with left hemiplegia, depression, resident at [place], transferred to [facility], admitted to the [facility] for evaluation and treatment. The patient denies any chest pain, shortness of breath, nausea, vomiting, fever or chills. PAST MEDICAL HISTORY: Significant for hypertension, diabetes mellitus, CVA with left-sided hemiplegia, depression. PAST SURGICAL HISTORY: No recent surgery. ALLERGIES: ALLERGIC TO IODINATED CONTRAST. MEDICATIONS: Follow admission reconciliation. SOCIAL HISTORY: No smoking, no alcohol, no drug. FAMILY HISTORY: Noncontributory. REVIEW OF SYSTEMS: RENAL SYSTEM: No history of chronic renal disorder. CARDIOVASCULAR SYSTEM: He has a history of hypertension. ENDOCRINE SYSTEM: He has diabetes mellitus. GASTROINTESTINAL SYSTEM: No upper or lower gastrointestinal bleed. NEUROLOGICAL: He has history of CVA with left-sided hemiplegia. RESPIRATORY SYSTEM: No asthma. GENITOURINARY SYSTEM: No dysuria or hematuria. PHYSICAL EXAMINATION: GENERAL: He is awake, alert. VITAL SIGNS: Temperature is 97.8, heart rate 94, blood pressure 134/75. HEENT: Normocephalic. Pupils reactive to light and accommodation. Sclerae clear. NECK: Supple. Negative for lymphadenopathy, JVD or bruit. CHEST: Bilateral normal. No rhonchi or wheezing. HEART: S1, S2 normal. No murmur or gallop. ABDOMEN: Soft, bowel sounds positive. EXTREMITIES: No edema. NEUROLOGIC: He is awake, alert, mildly confused. He has left-sided weakness. LABORATORY DATA: White blood cell 9.2, hemoglobin 14.5, hematocrit 43.8, platelets 347. INR 1.06. Sodium 137, potassium 3.9, BUN 18, creatinine 1.0. ASSESSMENT: 1. Diabetes mellitus. 2. Hypertension. 3. Cerebrovascular accident. 4. History of major depression. PLAN: The patient admitted to the hospital under Dr. Naranjo's service. MEDICAL PROBLEM ADDRESSED DURING THIS HOSPITALIZATION: Depression. MEDICAL PROBLEMS ADDRESSED AT DISCHARGE: Diabetes mellitus, hypertension, and CVA. The patient is medically stable for activity. Thank you, Dr. Naranjo, for asking me to see your patient. The patient is a full code. JOB# [id number]
[2018-12-21 06:05] LABS: A1C 6.4 % (4.8-5.6)
[2018-12-21] MEDS: INSULIN LISPRO SLIDING SCALE 100 UNITS/ML UNIT SUBQ SCH ×4 (06:39→20:56)
[2018-12-21 06:42] LABS: % BASOPHILS 0.4 % (0.0-2.0); % EOSINOPHILS 4.1 % (0.0-5.0); % LYMPHOCYTES 28.8 % (20.0-50.0); % NEUTROPHILS 56.7 % (40.0-80.0); EOSINOPHILE ABSOLUTE 0.4 Th/cmm (0.1-0.4); HEMATOCRIT 42.4 % (41.0-60); HEMOGLOBIN 14.1 gm/dL (12-16); LYMPHOCYTE ABSOLUTE 2.5 Th/cmm (1.5-3.0); MEAN CORPUSCULAR HGB CONC 33.4 pg (28.0-36.0); MONOCYTE ABSOLUTE 0.9 Th/cmm (0.3-1.0); NEUTROPHILE ABSOLUTE 4.8 Th/cmm (1.8-8.0); PLATELET COUNT 327 Th/cmm (150-400); RED BLOOD COUNT 4.71 Mil/cmm (4.30-5.70); RED CELL DISTRIBUTION WIDTH 13.2 % (11.5-20.0); WHITE BLOOD COUNT 8.6 Th/cmm (4.8-10.8)
[2018-12-21 07:11] LABS: ALB/GLOB RATIO 1.2 (1.0-1.8); ALBUMIN 3.8 gm/dL (4.2-5.5); ALKALINE PHOSPHATASE 57 U/L (34-104); ANION GAP 12.5 (7.0-16.0); BILIRUBIN,TOTAL 0.5 mg/dL (0.3-1.0); BUN - UREA NITROGEN 17 mg/dL (7-25); CALCIUM SERUM 9.2 mg/dL (8.6-10.3); CARBON DIOXIDE 24.4 mEq/L (21.0-31.0); CHLORIDE 104 mEq/L (98-107); CREATININE - SERUM 1.1 mg/dL (0.7-1.3); GFR AFRICAN-AMERICAN > 60.0 ml/min (>90); GFR NON AFRICAN-AMERICAN > 60.0 ml/min; GLUCOSE 142 mg/dL (70-105); POTASSIUM SERUM 3.9 mEq/L (3.5-5.1); SGOT 12 U/L (13-39); SGPT/ALT 12 U/L (7-52); SODIUM SERUM 137 mEq/L (136-145); TOTAL PROTEIN,SERUM 6.9 gm/dL (6.0-8.3)
[2018-12-21] MEDS ORDERED: UBIDECARENONE 200 MG PO SCH (09:00)
[2018-12-21] MEDS ORDERED: Non-Formulary Item 1 EA (Sertraline Hcl [Zoloft] 100 MG) PO SCH (09:00)
[2018-12-21] MEDS: Multivitamin Tab PO SCH (09:31)
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
[2018-12-21] MEDS: Lactulose 10 Gm/15 mL 30mL UDC PO SCH (20:35)
[2018-12-21] MEDS: Insulin Glargine 100 units/ml 10ml Vial SUBQ SCH (20:50)
[2018-12-21] MEDS ORDERED: FLUTICASONE PROPIONATE 50 MCG IH SCH (21:00)
--- NOTE | 2018-12-21 21:37 | Internal Medicine Prog Note ---
Internal Medicine Subjective - Subjective Service Date: 12/21/18 Patient seen and examined:: without staff (HE FEELS WELL) Patient is:: awake, verbal, in bed, talking Per staff patient has:: no adverse event Internal Medicine Objective - Results Result Diagrams: 12/21/18 06:30 12/21/18 06:30 Recent Labs: Laboratory Last Values WBC 8.6 Th/cmm (4.8-10.8) 12/21/18 06:30 RBC 4.71 Mil/cmm (4.30-5.70) 12/21/18 06:30 Hgb 14.1 gm/dL (12-16) 12/21/18 06:30 Hct 42.4 % (41.0-60) 12/21/18 06:30 MCV 90.0 fl (80-99) 12/21/18 06:30 MCH 30.0 pg (26.0-30.0) 12/21/18 06:30 MCHC Differential 33.4 pg (28.0-36.0) 12/21/18 06:30 RDW 13.2 % (11.5-20.0) 12/21/18 06:30 Plt Count 327 Th/cmm (150-400) 12/21/18 06:30 MPV 6.9 fl 12/21/18 06:30 Neutrophils % 56.7 % (40.0-80.0) 12/21/18 06:30 Lymphocytes % 28.8 % (20.0-50.0) 12/21/18 06:30 Monocytes % 10.0 % (2.0-10.0) 12/21/18 06:30 Eosinophils % 4.1 % (0.0-5.0) 12/21/18 06:30 Basophils % 0.4 % (0.0-2.0) 12/21/18 06:30 PT 11.0 SECONDS (9.5-11.5) 12/20/18 15:30 INR 1.06 (0.5-1.4) 12/20/18 15:30 PTT (Actin FS) 29.6 SECONDS (26.0-38.0) 12/20/18 15:30 Sodium 137 mEq/L (136-145) 12/21/18 06:30 Potassium 3.9 mEq/L (3.5-5.1) 12/21/18 06:30 Chloride 104 mEq/L (98-107) 12/21/18 06:30 Carbon Dioxide 24.4 mEq/L (21.0-31.0) 12/21/18 06:30 Anion Gap 12.5 (7.0-16.0) 12/21/18 06:30 BUN 17 mg/dL (7-25) 12/21/18 06:30 Creatinine 1.1 mg/dL (0.7-1.3) 12/21/18 06:30 Est GFR ( Amer) > 60.0 ml/min (>90) 12/21/18 06:30 Est GFR (Non-Af Amer) > 60.0 ml/min 12/21/18 06:30 BUN/Creatinine Ratio 15.5 12/21/18 06:30 Glucose 142 mg/dL (70-105) H 12/21/18 06:30 POC Glucose 118 MG/DL (70 - 105) H 12/21/18 20:44 Calcium 9.2 mg/dL (8.6-10.3) 12/21/18 06:30 Total Bilirubin 0.5 mg/dL (0.3-1.0) 12/21/18 06:30 AST 12 U/L (13-39) L 12/21/18 06:30 ALT 12 U/L (7-52) 12/21/18 06:30 Alkaline Phosphatase 57 U/L (34-104) 12/21/18 06:30 Total Protein 6.9 gm/dL (6.0-8.3) 12/21/18 06:30 Albumin 3.8 gm/dL (4.2-5.5) L 12/21/18 06:30 Globulin 3.1 gm/dL 12/21/18 06:30 Albumin/Globulin Ratio 1.2 (1.0-1.8) 12/21/18 06:30 Triglycerides 118 mg/dL (<150) 12/20/18 18:50 Cholesterol 145 mg/dL (<200) 12/20/18 18:50 LDL Cholesterol Direct 100 mg/dL (75-193) 12/20/18 18:50 HDL Cholesterol 26 mg/dL (23-92) 12/20/18 18:50 Urine Source CLEAN C 12/20/18 14:45 Urine Color YELLOW 12/20/18 14:45 Urine Clarity CLEAR (CLEAR) 12/20/18 14:45 Urine pH 6.5 (4.6 - 8.0) 12/20/18 14:45 Ur Specific [place] 1.015 (1.005-1.030) 12/20/18 14:45 Urine Protein NEGATIVE mg/dL (NEGATIVE) 12/20/18 14:45 Urine Glucose (UA) NEGATIVE mg/dL (NEGATIVE) 12/20/18 14:45 Urine Ketones NEGATIVE mg/dL (NEGATIVE) 12/20/18 14:45 Urine Blood NEGATIVE (NEGATIVE) 12/20/18 14:45 Urine Nitrate NEGATIVE (NEGATIVE) 12/20/18 14:45 Urine Bilirubin NEGATIVE (NEGATIVE) 12/20/18 14:45 Urine Urobilinogen 1.0 E.U./dL (0.2 - 1.0) 12/20/18 14:45 Ur Leukocyte Esterase NEGATIVE (NEGATIVE) 12/20/18 14:45 Urine RBC 0-2 /hpf (0-5) H 12/20/18 14:45 Urine WBC 0-2 /hpf (0-5) 12/20/18 14:45 Ur Epithelial Cells FEW /lpf (FEW) 12/20/18 14:45 Urine Bacteria FEW /hpf (NONE SEEN) 12/20/18 14:45 Urine Mucus FEW /lpf (FEW) 12/20/18 14:45 - Physical Exam Vitals and I&O: Vital Signs Temp 98.1 F 12/21/18 20:15 Pulse 91 12/21/18 20:38 Resp 18 12/21/18 20:15 BP 119/87 12/21/18 20:38 Pulse Ox 98 12/21/18 20:15 Intake & Output 12/21/18 12/21/18 12/22/18 06:59 18:59 06:59 Intake Total 240 Balance 240 Intake: Oral 240 Other: # Voids 1 Stool Characteristics Soft Active Medications: Current Medications Acetaminophen (Tylenol) 650 mg PO Q4HR PRN PRN Reason: Mild Pain / Temp above 100 Stop: 02/18/19 17:30 Last Admin: 12/21/18 20:56 Dose: 650 mg Al Hydrox/Mg Hydrox/Simethicone (Maalox) 30 ml PO Q4HR PRN PRN Reason: GI DISTRESS Stop: 02/18/19 17:30 Aripiprazole (Abilify) 2 mg PO DAILY [facility]; Protocol Stop: 02/19/19 08:59 Last Admin: 12/21/18 10:52 Dose: Not Given Cilostazol (Pletal) 100 mg PO BID [facility] Stop: 02/19/19 08:59 Last Admin: 12/21/18 10:52 Dose: Not Given Clopidogrel Bisulfate (Plavix) 75 mg PO DAILY [facility] Stop: 02/19/19 08:59 Last Admin: 12/21/18 09:32 Dose: 75 mg Dextrose (D50w) 50 ml IVP PRN PRN PRN Reason: Blood Glucose less than 70 Stop: 02/18/19 21:08 Dextrose (Glutose 40%) 18.75 gm PO PRN PRN PRN Reason: Blood Glucose less than 70 Stop: 02/18/19 21:08 Docusate Sodium (Colace) 250 mg PO QPM [facility] Stop: 02/19/19 16:59 Last Admin: 12/21/18 17:00 Dose: 250 mg Doxepin HCl (Sinequan) 50 mg PO [facility] Stop: 02/19/19 20:59 Last Admin: 12/21/18 20:36 Dose: 50 mg Fluticasone Propionate (Flonase) 2 spr NS DAILY PRN PRN Reason: ALLERGIC RHINITIS Stop: 02/18/19 21:02 Glucagon (Glucagen) 1 mg IM PRN PRN PRN Reason: Blood Glucose less than 70 Stop: 02/18/19 21:08 Insulin Glargine (Lantus Insulin) 10 units SUBQ [facility] Stop: 02/19/19 20:59 Last Admin: 12/21/18 20:50 Dose: 10 unit Insulin Human Lispro (Humalog Insulin Sliding Scale) 0 units SUBQ [facility]; Protocol Stop: 02/19/19 07:29 Last Admin: 12/21/18 20:56 Dose: Not Given Labetalol HCl (Trandate) 100 mg PO [facility] Stop: 02/19/19 20:59 Last Admin: 12/21/18 20:38 Dose: 100 mg Lactulose (Cephulac) 20 gm PO [facility] Stop: 02/19/19 20:59 Last Admin: 12/21/18 20:35 Dose: 20 gm Lisinopril (Zestril) 2.5 mg PO DAILY [facility] Stop: 02/19/19 08:59 Last Admin: 12/21/18 09:34 Dose: 2.5 mg Magnesium Hydroxide (Milk Of Magnesia) 30 ml PO HS PRN PRN Reason: Constipation Miscellaneous (Ubidecarenone [Co Q-10]) 200 mg PO DAILY [facility] Stop: 02/19/19 08:59 Multivitamins/Vitamin C (Theragran) 1 tab PO DAILY [facility] Stop: 02/19/19 08:59 Last Admin: 12/21/18 09:31 Dose: 1 tab Mupirocin (Bactroban Oint) 1 appl NS BID [facility]; Protocol Stop: 12/26/18 17:01 Sertraline HCl (Zoloft) 100 mg PO DAILY [facility]; Protocol Stop: 02/19/19 08:59 Last Admin: 12/21/18 09:34 Dose: 100 mg Simvastatin (Zocor) 10 mg PO HS [facility]; Protocol Stop: 02/19/19 20:59 Last Admin: 12/21/18 20:35 Dose: 10 mg Tramadol HCl (Ultram) 50 mg PO BID PRN PRN Reason: MOD/SEVERE PAIN Stop: 02/18/19 21:02 Zolpidem Tartrate (Ambien) 5 mg PO HS PRN PRN Reason: Insomnia Stop: 02/18/19 21:38 Last Admin: 12/21/18 20:35 Dose: 5 mg General: alert HEENT: NC/AT, PERRLA, EOMI, anicteric sclerae, throat clear Neck: Supple, No JVD, No thyromegaly, +2 carotid pulse wo bruit, No LAD Lungs: CTAB Cardiovascular: RRR, Normal S1, Normal S2, without murmur Abdomen: soft, non-tender, non-distended Extremities: clear Neurological: alert, other (HE HAS LEFT SIDE WEAK) Internal Medicine Assmt/Plan - Assessment Assessment: 1.HTN. 2.CVA. 3.DM. 4.DEPRESSION - Plan Plan: CONTINUE ON CURRENT MEDICATION AND DIET.
[2018-12-22] MEDS: INSULIN LISPRO SLIDING SCALE 100 UNITS/ML UNIT SUBQ SCH ×4 (06:33→21:02)
[2018-12-22] MEDS: Multivitamin Tab PO SCH (09:07)
[2018-12-22] MEDS: Lactulose 10 Gm/15 mL 30mL UDC PO SCH (21:02)
[2018-12-22] MEDS: Insulin Glargine 100 units/ml 10ml Vial SUBQ SCH (21:03)
--- NOTE | 2018-12-22 21:08 | Internal Medicine Prog Note ---
Internal Medicine Subjective - Subjective Service Date: 12/22/18 Patient seen and examined:: with staff (HE FEELS BETTER) Patient is:: awake, verbal, in bed, talking Per staff patient has:: no adverse event Internal Medicine Objective - Results Result Diagrams: 12/21/18 06:30 12/21/18 06:30 Recent Labs: Laboratory Last Values WBC 8.6 Th/cmm (4.8-10.8) 12/21/18 06:30 RBC 4.71 Mil/cmm (4.30-5.70) 12/21/18 06:30 Hgb 14.1 gm/dL (12-16) 12/21/18 06:30 Hct 42.4 % (41.0-60) 12/21/18 06:30 MCV 90.0 fl (80-99) 12/21/18 06:30 MCH 30.0 pg (26.0-30.0) 12/21/18 06:30 MCHC Differential 33.4 pg (28.0-36.0) 12/21/18 06:30 RDW 13.2 % (11.5-20.0) 12/21/18 06:30 Plt Count 327 Th/cmm (150-400) 12/21/18 06:30 MPV 6.9 fl 12/21/18 06:30 Neutrophils % 56.7 % (40.0-80.0) 12/21/18 06:30 Lymphocytes % 28.8 % (20.0-50.0) 12/21/18 06:30 Monocytes % 10.0 % (2.0-10.0) 12/21/18 06:30 Eosinophils % 4.1 % (0.0-5.0) 12/21/18 06:30 Basophils % 0.4 % (0.0-2.0) 12/21/18 06:30 PT 11.0 SECONDS (9.5-11.5) 12/20/18 15:30 INR 1.06 (0.5-1.4) 12/20/18 15:30 PTT (Actin FS) 29.6 SECONDS (26.0-38.0) 12/20/18 15:30 Sodium 137 mEq/L (136-145) 12/21/18 06:30 Potassium 3.9 mEq/L (3.5-5.1) 12/21/18 06:30 Chloride 104 mEq/L (98-107) 12/21/18 06:30 Carbon Dioxide 24.4 mEq/L (21.0-31.0) 12/21/18 06:30 Anion Gap 12.5 (7.0-16.0) 12/21/18 06:30 BUN 17 mg/dL (7-25) 12/21/18 06:30 Creatinine 1.1 mg/dL (0.7-1.3) 12/21/18 06:30 Est GFR ( Amer) > 60.0 ml/min (>90) 12/21/18 06:30 Est GFR (Non-Af Amer) > 60.0 ml/min 12/21/18 06:30 BUN/Creatinine Ratio 15.5 12/21/18 06:30 Glucose 142 mg/dL (70-105) H 12/21/18 06:30 POC Glucose 132 MG/DL (70 - 105) H 12/22/18 20:57 Calcium 9.2 mg/dL (8.6-10.3) 12/21/18 06:30 Total Bilirubin 0.5 mg/dL (0.3-1.0) 12/21/18 06:30 AST 12 U/L (13-39) L 12/21/18 06:30 ALT 12 U/L (7-52) 12/21/18 06:30 Alkaline Phosphatase 57 U/L (34-104) 12/21/18 06:30 Total Protein 6.9 gm/dL (6.0-8.3) 12/21/18 06:30 Albumin 3.8 gm/dL (4.2-5.5) L 12/21/18 06:30 Globulin 3.1 gm/dL 12/21/18 06:30 Albumin/Globulin Ratio 1.2 (1.0-1.8) 12/21/18 06:30 Triglycerides 118 mg/dL (<150) 12/20/18 18:50 Cholesterol 145 mg/dL (<200) 12/20/18 18:50 LDL Cholesterol Direct 100 mg/dL (75-193) 12/20/18 18:50 HDL Cholesterol 26 mg/dL (23-92) 12/20/18 18:50 Urine Source CLEAN C 12/20/18 14:45 Urine Color YELLOW 12/20/18 14:45 Urine Clarity CLEAR (CLEAR) 12/20/18 14:45 Urine pH 6.5 (4.6 - 8.0) 12/20/18 14:45 Ur Specific [place] 1.015 (1.005-1.030) 12/20/18 14:45 Urine Protein NEGATIVE mg/dL (NEGATIVE) 12/20/18 14:45 Urine Glucose (UA) NEGATIVE mg/dL (NEGATIVE) 12/20/18 14:45 Urine Ketones NEGATIVE mg/dL (NEGATIVE) 12/20/18 14:45 Urine Blood NEGATIVE (NEGATIVE) 12/20/18 14:45 Urine Nitrate NEGATIVE (NEGATIVE) 12/20/18 14:45 Urine Bilirubin NEGATIVE (NEGATIVE) 12/20/18 14:45 Urine Urobilinogen 1.0 E.U./dL (0.2 - 1.0) 12/20/18 14:45 Ur Leukocyte Esterase NEGATIVE (NEGATIVE) 12/20/18 14:45 Urine RBC 0-2 /hpf (0-5) H 12/20/18 14:45 Urine WBC 0-2 /hpf (0-5) 12/20/18 14:45 Ur Epithelial Cells FEW /lpf (FEW) 12/20/18 14:45 Urine Bacteria FEW /hpf (NONE SEEN) 12/20/18 14:45 Urine Mucus FEW /lpf (FEW) 12/20/18 14:45 - Physical Exam Vitals and I&O: Vital Signs Temp 97.4 F 12/22/18 08:00 Pulse 88 12/22/18 20:53 Resp 20 12/22/18 08:00 BP 134/75 12/22/18 20:53 Pulse Ox 98 12/22/18 08:00 Intake & Output 12/22/18 12/22/18 12/23/18 06:59 18:59 06:59 Intake Total 420 Balance 420 Intake: Oral 420 Other: # Voids 3 3 # Bowel Movements 1 0 Stool Characteristics Soft Formed Active Medications: Current Medications Acetaminophen (Tylenol) 650 mg PO Q4HR PRN PRN Reason: Mild Pain / Temp above 100 Stop: 02/18/19 17:30 Last Admin: 12/21/18 20:56 Dose: 650 mg Al Hydrox/Mg Hydrox/Simethicone (Maalox) 30 ml PO Q4HR PRN PRN Reason: GI DISTRESS Stop: 02/18/19 17:30 Cilostazol (Pletal) 100 mg PO BID [facility] Stop: 02/19/19 08:59 Last Admin: 12/22/18 17:05 Dose: 100 mg Clopidogrel Bisulfate (Plavix) 75 mg PO DAILY [facility] Stop: 02/19/19 08:59 Last Admin: 12/22/18 09:06 Dose: 75 mg Dextrose (D50w) 50 ml IVP PRN PRN PRN Reason: Blood Glucose less than 70 Stop: 02/18/19 21:08 Dextrose (Glutose 40%) 18.75 gm PO PRN PRN PRN Reason: Blood Glucose less than 70 Stop: 02/18/19 21:08 Docusate Sodium (Colace) 250 mg PO QPM [facility] Stop: 02/19/19 16:59 Last Admin: 12/22/18 17:06 Dose: 250 mg Doxepin HCl (Sinequan) 50 mg PO [facility] Stop: 02/19/19 20:59 Last Admin: 12/22/18 20:53 Dose: 50 mg Fluticasone Propionate (Flonase) 2 spr NS DAILY PRN PRN Reason: ALLERGIC RHINITIS Stop: 02/18/19 21:02 Glucagon (Glucagen) 1 mg IM PRN PRN PRN Reason: Blood Glucose less than 70 Stop: 02/18/19 21:08 Insulin Glargine (Lantus Insulin) 10 units SUBQ [facility] Stop: 02/19/19 20:59 Last Admin: 12/22/18 21:03 Dose: 10 unit Insulin Human Lispro (Humalog Insulin Sliding Scale) 0 units SUBQ [facility]; Protocol Stop: 02/19/19 07:29 Last Admin: 12/22/18 21:02 Dose: Not Given Labetalol HCl (Trandate) 100 mg PO [facility] Stop: 02/19/19 20:59 Last Admin: 12/22/18 20:53 Dose: 100 mg Lactulose (Cephulac) 20 gm PO [facility] Stop: 02/19/19 20:59 Last Admin: 12/22/18 21:02 Dose: 20 gm Lisinopril (Zestril) 2.5 mg PO DAILY [facility] Stop: 02/19/19 08:59 Last Admin: 12/22/18 09:14 Dose: 2.5 mg Magnesium Hydroxide (Milk Of Magnesia) 30 ml PO HS PRN PRN Reason: Constipation Miscellaneous (Ubidecarenone [Co Q-10]) 200 mg PO DAILY [facility] Stop: 02/19/19 08:59 Multivitamins/Vitamin C (Theragran) 1 tab PO DAILY [facility] Stop: 02/19/19 08:59 Last Admin: 12/22/18 09:07 Dose: 1 tab Mupirocin (Bactroban Oint) 1 appl NS BID [facility]; Protocol Stop: 12/26/18 17:01 Last Admin: 12/22/18 17:06 Dose: 1 appl Sertraline HCl (Zoloft) 150 mg PO DAILY [facility]; Protocol Stop: 02/20/19 09:59 Simvastatin (Zocor) 10 mg PO HS [facility]; Protocol Stop: 02/19/19 20:59 Last Admin: 12/22/18 20:51 Dose: 10 mg Tramadol HCl (Ultram) 50 mg PO BID PRN PRN Reason: MOD/SEVERE PAIN Stop: 02/18/19 21:02 Zolpidem Tartrate (Ambien) 5 mg PO HS PRN PRN Reason: Insomnia Stop: 02/18/19 21:38 Last Admin: 12/22/18 20:51 Dose: 5 mg General: alert HEENT: NC/AT, PERRLA, EOMI, anicteric sclerae, throat clear Neck: Supple, No JVD, No thyromegaly, +2 carotid pulse wo bruit, No LAD Lungs: CTAB Cardiovascular: RRR, Normal S1, Normal S2, without murmur Abdomen: soft, non-tender, non-distended Extremities: clear Neurological: alert, other (HE HAS LEFT SIDE WEAK) Internal Medicine Assmt/Plan - Assessment Assessment: 1.HTN. 2.CVA. 3.DM. 4.DEPRESSION - Plan Plan: CONTINUE ON CURRENT MEDICATION AND DIET.
--- NOTE | 2018-12-23 00:26 | Progress Notes ---
DATE: 12/22/2018 SUBJECTIVE: Chart was reviewed and the patient interviewed. Also discussed the patient's condition with the staff and reviewed records and labs. The patient is still demanding and still in angry and in irritable mood. The patient also is still easily irritable and he gets episodes of anger. He still insists that he can return to his home while he has no place to go back to. Otherwise, the patient is still compliant with taking his medications except that he refused to take Abilify yesterday. No apparent reason for his refusing to take Abilify, although explaining that the Abilify is to help with his depression and it will be as mix of Zoloft to work stronger, but he did not accept that. ASSESSMENT: The patient is still depressed and is demanding and easily irritable and agitated. TREATMENT PLAN: We will discontinue his Abilify and we will increase Zoloft to 150 mg once a day. Also, we will place the patient on a 5250 hold for dangerous to others and with the fact that he is also unable to provide any safe plan for self-care or discharge as ____ stable and will continue to follow up. [facility]# [id number]
[2018-12-23] MEDS: INSULIN LISPRO SLIDING SCALE 100 UNITS/ML UNIT SUBQ SCH ×4 (06:40→21:52)
[2018-12-23] MEDS: Multivitamin Tab PO SCH (09:16)
--- NOTE | 2018-12-23 19:46 | Internal Medicine Prog Note ---
Internal Medicine Subjective - Subjective Service Date: 12/23/18 Patient seen and examined:: without staff (HE FEELS WELL) Patient is:: awake, verbal, in bed, talking Per staff patient has:: no adverse event Internal Medicine Objective - Results Result Diagrams: 12/21/18 06:30 12/21/18 06:30 Recent Labs: Laboratory Last Values WBC 8.6 Th/cmm (4.8-10.8) 12/21/18 06:30 RBC 4.71 Mil/cmm (4.30-5.70) 12/21/18 06:30 Hgb 14.1 gm/dL (12-16) 12/21/18 06:30 Hct 42.4 % (41.0-60) 12/21/18 06:30 MCV 90.0 fl (80-99) 12/21/18 06:30 MCH 30.0 pg (26.0-30.0) 12/21/18 06:30 MCHC Differential 33.4 pg (28.0-36.0) 12/21/18 06:30 RDW 13.2 % (11.5-20.0) 12/21/18 06:30 Plt Count 327 Th/cmm (150-400) 12/21/18 06:30 MPV 6.9 fl 12/21/18 06:30 Neutrophils % 56.7 % (40.0-80.0) 12/21/18 06:30 Lymphocytes % 28.8 % (20.0-50.0) 12/21/18 06:30 Monocytes % 10.0 % (2.0-10.0) 12/21/18 06:30 Eosinophils % 4.1 % (0.0-5.0) 12/21/18 06:30 Basophils % 0.4 % (0.0-2.0) 12/21/18 06:30 PT 11.0 SECONDS (9.5-11.5) 12/20/18 15:30 INR 1.06 (0.5-1.4) 12/20/18 15:30 PTT (Actin FS) 29.6 SECONDS (26.0-38.0) 12/20/18 15:30 Sodium 137 mEq/L (136-145) 12/21/18 06:30 Potassium 3.9 mEq/L (3.5-5.1) 12/21/18 06:30 Chloride 104 mEq/L (98-107) 12/21/18 06:30 Carbon Dioxide 24.4 mEq/L (21.0-31.0) 12/21/18 06:30 Anion Gap 12.5 (7.0-16.0) 12/21/18 06:30 BUN 17 mg/dL (7-25) 12/21/18 06:30 Creatinine 1.1 mg/dL (0.7-1.3) 12/21/18 06:30 Est GFR ( Amer) > 60.0 ml/min (>90) 12/21/18 06:30 Est GFR (Non-Af Amer) > 60.0 ml/min 12/21/18 06:30 BUN/Creatinine Ratio 15.5 12/21/18 06:30 Glucose 142 mg/dL (70-105) H 12/21/18 06:30 POC Glucose 133 MG/DL (70 - 105) H 12/23/18 16:13 Calcium 9.2 mg/dL (8.6-10.3) 12/21/18 06:30 Total Bilirubin 0.5 mg/dL (0.3-1.0) 12/21/18 06:30 AST 12 U/L (13-39) L 12/21/18 06:30 ALT 12 U/L (7-52) 12/21/18 06:30 Alkaline Phosphatase 57 U/L (34-104) 12/21/18 06:30 Total Protein 6.9 gm/dL (6.0-8.3) 12/21/18 06:30 Albumin 3.8 gm/dL (4.2-5.5) L 12/21/18 06:30 Globulin 3.1 gm/dL 12/21/18 06:30 Albumin/Globulin Ratio 1.2 (1.0-1.8) 12/21/18 06:30 Triglycerides 118 mg/dL (<150) 12/20/18 18:50 Cholesterol 145 mg/dL (<200) 12/20/18 18:50 LDL Cholesterol Direct 100 mg/dL (75-193) 12/20/18 18:50 HDL Cholesterol 26 mg/dL (23-92) 12/20/18 18:50 Urine Source CLEAN C 12/20/18 14:45 Urine Color YELLOW 12/20/18 14:45 Urine Clarity CLEAR (CLEAR) 12/20/18 14:45 Urine pH 6.5 (4.6 - 8.0) 12/20/18 14:45 Ur Specific [place] 1.015 (1.005-1.030) 12/20/18 14:45 Urine Protein NEGATIVE mg/dL (NEGATIVE) 12/20/18 14:45 Urine Glucose (UA) NEGATIVE mg/dL (NEGATIVE) 12/20/18 14:45 Urine Ketones NEGATIVE mg/dL (NEGATIVE) 12/20/18 14:45 Urine Blood NEGATIVE (NEGATIVE) 12/20/18 14:45 Urine Nitrate NEGATIVE (NEGATIVE) 12/20/18 14:45 Urine Bilirubin NEGATIVE (NEGATIVE) 12/20/18 14:45 Urine Urobilinogen 1.0 E.U./dL (0.2 - 1.0) 12/20/18 14:45 Ur Leukocyte Esterase NEGATIVE (NEGATIVE) 12/20/18 14:45 Urine RBC 0-2 /hpf (0-5) H 12/20/18 14:45 Urine WBC 0-2 /hpf (0-5) 12/20/18 14:45 Ur Epithelial Cells FEW /lpf (FEW) 12/20/18 14:45 Urine Bacteria FEW /hpf (NONE SEEN) 12/20/18 14:45 Urine Mucus FEW /lpf (FEW) 12/20/18 14:45 - Physical Exam Vitals and I&O: Vital Signs Temp 97.6 F 12/23/18 13:44 Pulse 108 12/23/18 13:44 Resp 18 12/23/18 13:44 BP 152/96 12/23/18 13:44 Pulse Ox 97 12/23/18 13:44 Intake & Output 12/23/18 12/23/18 12/24/18 06:59 18:59 06:59 Intake Total 120 Balance 120 Intake: Oral 120 Other: # Voids 3 2 # Bowel Movements 0 Stool Characteristics Soft Soft Active Medications: Current Medications Acetaminophen (Tylenol) 650 mg PO Q4HR PRN PRN Reason: Mild Pain / Temp above 100 Stop: 02/18/19 17:30 Last Admin: 12/21/18 20:56 Dose: 650 mg Al Hydrox/Mg Hydrox/Simethicone (Maalox) 30 ml PO Q4HR PRN PRN Reason: GI DISTRESS Stop: 02/18/19 17:30 Cilostazol (Pletal) 100 mg PO BID [facility] Stop: 02/19/19 08:59 Last Admin: 12/23/18 16:31 Dose: 100 mg Clopidogrel Bisulfate (Plavix) 75 mg PO DAILY [facility] Stop: 02/19/19 08:59 Last Admin: 12/23/18 09:18 Dose: 75 mg Dextrose (D50w) 50 ml IVP PRN PRN PRN Reason: Blood Glucose less than 70 Stop: 02/18/19 21:08 Dextrose (Glutose 40%) 18.75 gm PO PRN PRN PRN Reason: Blood Glucose less than 70 Stop: 02/18/19 21:08 Docusate Sodium (Colace) 250 mg PO QPM [facility] Stop: 02/19/19 16:59 Last Admin: 12/23/18 16:32 Dose: 250 mg Doxepin HCl (Sinequan) 50 mg PO [facility] Stop: 02/19/19 20:59 Last Admin: 12/22/18 20:53 Dose: 50 mg Fluticasone Propionate (Flonase) 2 spr NS DAILY PRN PRN Reason: ALLERGIC RHINITIS Stop: 02/18/19 21:02 Glucagon (Glucagen) 1 mg IM PRN PRN PRN Reason: Blood Glucose less than 70 Stop: 02/18/19 21:08 Insulin Glargine (Lantus Insulin) 10 units SUBQ [facility] Stop: 02/19/19 20:59 Last Admin: 12/22/18 21:03 Dose: 10 unit Insulin Human Lispro (Humalog Insulin Sliding Scale) 0 units SUBQ [facility]; Protocol Stop: 02/19/19 07:29 Last Admin: 12/23/18 16:16 Dose: Not Given Labetalol HCl (Trandate) 100 mg PO [facility] Stop: 02/19/19 20:59 Last Admin: 12/22/18 20:53 Dose: 100 mg Lactulose (Cephulac) 20 gm PO [facility] Stop: 02/19/19 20:59 Last Admin: 12/22/18 21:02 Dose: 20 gm Lisinopril (Zestril) 2.5 mg PO DAILY [facility] Stop: 02/19/19 08:59 Last Admin: 12/23/18 09:16 Dose: 2.5 mg Magnesium Hydroxide (Milk Of Magnesia) 30 ml PO HS PRN PRN Reason: Constipation Miscellaneous (Ubidecarenone [Co Q-10]) 200 mg PO DAILY [facility] Stop: 02/19/19 08:59 Multivitamins/Vitamin C (Theragran) 1 tab PO DAILY [facility] Stop: 02/19/19 08:59 Last Admin: 12/23/18 09:16 Dose: 1 tab Mupirocin (Bactroban Oint) 1 appl NS BID [facility]; Protocol Stop: 12/26/18 17:01 Last Admin: 12/23/18 16:17 Dose: 1 appl Sertraline HCl (Zoloft) 150 mg PO DAILY [facility]; Protocol Stop: 02/20/19 09:59 Last Admin: 12/23/18 09:16 Dose: 150 mg Simvastatin (Zocor) 10 mg PO HS [facility]; Protocol Stop: 02/19/19 20:59 Last Admin: 12/22/18 20:51 Dose: 10 mg Tramadol HCl (Ultram) 50 mg PO BID PRN PRN Reason: MOD/SEVERE PAIN Stop: 02/18/19 21:02 Zolpidem Tartrate (Ambien) 5 mg PO HS PRN PRN Reason: Insomnia Stop: 02/18/19 21:38 Last Admin: 12/22/18 20:51 Dose: 5 mg General: alert HEENT: NC/AT, PERRLA, EOMI, anicteric sclerae, throat clear Neck: Supple, No JVD, No thyromegaly, +2 carotid pulse wo bruit, No LAD Lungs: CTAB Cardiovascular: RRR, Normal S1, Normal S2, without murmur Abdomen: soft, non-tender, non-distended Extremities: clear Neurological: alert, other (HE HAS LEFT SIDE WEAK) Internal Medicine Assmt/Plan - Assessment Assessment: 1.HTN. 2.CVA. 3.DM. 4.DEPRESSION - Plan Plan: CONTINUE ON CURRENT MEDICATION AND DIET. Nutritional Asmnt/Malnutr-PDOC - Dietary Evaluation Malnutrition Findings (Please click <Entered> for more info): Nutritional Asmnt/Malnutrition Start: 12/23/18 18: 38 Text: Status: Active Freq: Protocol: Document 12/23/18 18:38 [email or web address] (Rec: 12/23/18 18:45 [email or web address]) Nutritional Asmnt/Malnutrition Patient General Information Nutritional Screening Moderate Risk Diagnosis PSYCHOSIS NOS Pertinent Medical Hx/Surgical Hx HTN, DM, CVA with left hemiplegia, depression. Subjective Information Pt seen lying in bed, reports decreased appetite because he doesn't like the food on current diet rx. Reports some nausea, says he typically likes to eat fish such as salmon or flounder twice a week, dislikes tilapia. Current Diet Order/ Nutrition Support Cardiac Patient / S.O Can Pertinent Medications maalox, plavix, colace, insulin, labetalol, lactulose, lisinopril, MOM, MVI Pertinent Labs Glucose 142 mg/dl; POC glucose 112-133 mg/dl (12/22 08:00- 19:59) Nutritional Hx/Data Height 1.75 m Height (Calculated Centimeters) 175.3 Current Weight (lbs) 71.668 kg Weight (Calculated Kilograms) 71.7 Weight (Calculated Grams) 80720.6 Usual body Weight (lbs) 205 % Usual Body Weight 77 [place] Body Weight 160 lb, 72.7 kg % [place] Body Weight 99 Body Mass Index (BMI) 23.3 Recent Weight Change No Weight Status Approriate GI Symptoms GI Symptoms Nausea Last BM 12/22 Difficult in: None Food Allergies No Cultural/Ethnic/Holiness Belief not reported Usual diet at home not reported Skin Integrity/Comment: no noted pressure injury/non- healing wounds Current %PO Good (75-100%) Estimated Nutritional Goals BEE in Kcals: Using Current wt Calories/Kcals/Kg 25-30 Kcals Calculated 4962-6249 Protein: Using Current wt Protein g/k.8-1 Protein Calculated 57-72 Fluid: ml [id number] Nutritional Problem 1. Problem Problem Decreased nutrient needs- sodium- related to high blood pressure as evidenced by documented hx of HTN per medical record. Malnutrition Alert Is there a minimum of two criteria No selected? Query Text:Check all the applicable criteria. A minimum of two criteria are recommended for diagnosis of either severe or non-severe malnutrition. Malnutrition Related to Morbid Obesity Malnutrition related to morbid obesity No Intervention/Recommendation Comments Consider liberalizing diet to Regular, Low Sodium; consider consistent carbohdyrate modification if glucose trends >180. Expected Outcomes/Goals Expected Outcomes/Goals 1- Maintain PO intakes 75-100% of all meals 2- Maintain BG 80-180 mg/dl- insulin management per MD. Electronically Signed By: Chanel Ponce, MPH, RDN Clinical Dietitian 7:44 PM,
[2018-12-23] MEDS: Lactulose 10 Gm/15 mL 30mL UDC PO SCH (21:53)
[2018-12-23] MEDS: Insulin Glargine 100 units/ml 10ml Vial SUBQ SCH (21:54)
[2018-12-24] MEDS: INSULIN LISPRO SLIDING SCALE 100 UNITS/ML UNIT SUBQ SCH ×4 (07:02→20:07)
--- NOTE | 2018-12-24 08:14 | Progress Notes ---
DATE: SUBJECTIVE: Chart was reviewed and the patient interviewed. Also, discussed the patient's condition with the staff and reviewed records and labs. The patient continued to be in a depressed mood. The patient also is still angry for being in the hospital, but at the same time, he is angry for what was happening in [place] [facility] and he does not want to go back. He wants to go back home, but at the same time, no home for the patient. I am trying to explain that to the patient. The patient had difficulty accepting that. He also still has mood swings and he is still demanding and is still asking nurses all the time for list of things and he gets upset when his demands not met. On the other hand, no major behavioral issues with the patient. ASSESSMENT: The patient is still depressed and angry with mood swings and still can be dangerous to self and unable to provide a safe plan for self-care. TREATMENT PLAN: Continue to monitor his behavior and his condition. Also, continue to work on discharge plans and placement issue. Elisha [facility] called me yesterday and they have no problems accepting the patient back when he is calmer and when he is able to follow directions. JOB# [id number]
[2018-12-24] MEDS: Multivitamin Tab PO SCH (09:06)
--- NOTE | 2018-12-24 14:04 | Progress Notes ---
DATE: SUBJECTIVE: Chart was reviewed and the patient interviewed. Also discussed the patient's condition with the staff and reviewed records and labs. The patient continued to be restless and is still in angry and in irritable mood. The patient also is demanding and is still uncooperative with the staff. The patient also still has difficulty giving the patient any plans and follow any instructions. The patient also is still insisting that he can go back home and he gave me his daughter and his son's phone number and my understanding that the daughter and son does not want to deal with him. The patient also still thinks that he can have physical therapy and he can have some surgeries in order to help him to walk and move again which has difficulty understanding that he had a stroke and at this time, surgery is not going to be helpful. ASSESSMENT: The patient is still agitated and is still psychotic. TREATMENT PLAN: Continue to monitor behavior and condition closely. Also, continue working on behavior modification and accepting facts. Also, continue to work on his anger and demanding and irritability and we will continue to follow up closely. JOB# [id number]
--- NOTE | 2018-12-24 14:34 | Internal Medicine Prog Note ---
Internal Medicine Subjective - Subjective Service Date: 12/24/18 Patient seen and examined:: with staff (HE FEELS WELL) Patient is:: awake, verbal, in bed, talking Per staff patient has:: no adverse event Internal Medicine Objective - Results Result Diagrams: 12/21/18 06:30 12/21/18 06:30 Recent Labs: Laboratory Last Values WBC 8.6 Th/cmm (4.8-10.8) 12/21/18 06:30 RBC 4.71 Mil/cmm (4.30-5.70) 12/21/18 06:30 Hgb 14.1 gm/dL (12-16) 12/21/18 06:30 Hct 42.4 % (41.0-60) 12/21/18 06:30 MCV 90.0 fl (80-99) 12/21/18 06:30 MCH 30.0 pg (26.0-30.0) 12/21/18 06:30 MCHC Differential 33.4 pg (28.0-36.0) 12/21/18 06:30 RDW 13.2 % (11.5-20.0) 12/21/18 06:30 Plt Count 327 Th/cmm (150-400) 12/21/18 06:30 MPV 6.9 fl 12/21/18 06:30 Neutrophils % 56.7 % (40.0-80.0) 12/21/18 06:30 Lymphocytes % 28.8 % (20.0-50.0) 12/21/18 06:30 Monocytes % 10.0 % (2.0-10.0) 12/21/18 06:30 Eosinophils % 4.1 % (0.0-5.0) 12/21/18 06:30 Basophils % 0.4 % (0.0-2.0) 12/21/18 06:30 PT 11.0 SECONDS (9.5-11.5) 12/20/18 15:30 INR 1.06 (0.5-1.4) 12/20/18 15:30 PTT (Actin FS) 29.6 SECONDS (26.0-38.0) 12/20/18 15:30 Sodium 137 mEq/L (136-145) 12/21/18 06:30 Potassium 3.9 mEq/L (3.5-5.1) 12/21/18 06:30 Chloride 104 mEq/L (98-107) 12/21/18 06:30 Carbon Dioxide 24.4 mEq/L (21.0-31.0) 12/21/18 06:30 Anion Gap 12.5 (7.0-16.0) 12/21/18 06:30 BUN 17 mg/dL (7-25) 12/21/18 06:30 Creatinine 1.1 mg/dL (0.7-1.3) 12/21/18 06:30 Est GFR ( Amer) > 60.0 ml/min (>90) 12/21/18 06:30 Est GFR (Non-Af Amer) > 60.0 ml/min 12/21/18 06:30 BUN/Creatinine Ratio 15.5 12/21/18 06:30 Glucose 142 mg/dL (70-105) H 12/21/18 06:30 POC Glucose 113 MG/DL (70 - 105) H 12/24/18 07:00 Calcium 9.2 mg/dL (8.6-10.3) 12/21/18 06:30 Total Bilirubin 0.5 mg/dL (0.3-1.0) 12/21/18 06:30 AST 12 U/L (13-39) L 12/21/18 06:30 ALT 12 U/L (7-52) 12/21/18 06:30 Alkaline Phosphatase 57 U/L (34-104) 12/21/18 06:30 Total Protein 6.9 gm/dL (6.0-8.3) 12/21/18 06:30 Albumin 3.8 gm/dL (4.2-5.5) L 12/21/18 06:30 Globulin 3.1 gm/dL 12/21/18 06:30 Albumin/Globulin Ratio 1.2 (1.0-1.8) 12/21/18 06:30 Triglycerides 118 mg/dL (<150) 12/20/18 18:50 Cholesterol 145 mg/dL (<200) 12/20/18 18:50 LDL Cholesterol Direct 100 mg/dL (75-193) 12/20/18 18:50 HDL Cholesterol 26 mg/dL (23-92) 12/20/18 18:50 Urine Source CLEAN C 12/20/18 14:45 Urine Color YELLOW 12/20/18 14:45 Urine Clarity CLEAR (CLEAR) 12/20/18 14:45 Urine pH 6.5 (4.6 - 8.0) 12/20/18 14:45 Ur Specific [place] 1.015 (1.005-1.030) 12/20/18 14:45 Urine Protein NEGATIVE mg/dL (NEGATIVE) 12/20/18 14:45 Urine Glucose (UA) NEGATIVE mg/dL (NEGATIVE) 12/20/18 14:45 Urine Ketones NEGATIVE mg/dL (NEGATIVE) 12/20/18 14:45 Urine Blood NEGATIVE (NEGATIVE) 12/20/18 14:45 Urine Nitrate NEGATIVE (NEGATIVE) 12/20/18 14:45 Urine Bilirubin NEGATIVE (NEGATIVE) 12/20/18 14:45 Urine Urobilinogen 1.0 E.U./dL (0.2 - 1.0) 12/20/18 14:45 Ur Leukocyte Esterase NEGATIVE (NEGATIVE) 12/20/18 14:45 Urine RBC 0-2 /hpf (0-5) H 12/20/18 14:45 Urine WBC 0-2 /hpf (0-5) 12/20/18 14:45 Ur Epithelial Cells FEW /lpf (FEW) 12/20/18 14:45 Urine Bacteria FEW /hpf (NONE SEEN) 12/20/18 14:45 Urine Mucus FEW /lpf (FEW) 12/20/18 14:45 - Physical Exam Vitals and I&O: Vital Signs Temp 97 F 12/24/18 06:21 Pulse 81 12/24/18 09:07 Resp 19 12/24/18 06:21 BP 117/80 12/24/18 09:07 Pulse Ox 96 12/24/18 06:21 Intake & Output 12/23/18 12/24/18 12/24/18 18:59 06:59 18:59 Intake Total 120 Balance 120 Intake: Oral 120 Other: # Voids 2 3 # Bowel Movements 0 Stool Characteristics Soft Active Medications: Current Medications Acetaminophen (Tylenol) 650 mg PO Q4HR PRN PRN Reason: Mild Pain / Temp above 100 Stop: 02/18/19 17:30 Last Admin: 12/21/18 20:56 Dose: 650 mg Al Hydrox/Mg Hydrox/Simethicone (Maalox) 30 ml PO Q4HR PRN PRN Reason: GI DISTRESS Stop: 02/18/19 17:30 Cilostazol (Pletal) 100 mg PO BID [facility] Stop: 02/19/19 08:59 Last Admin: 12/24/18 09:06 Dose: 100 mg Clopidogrel Bisulfate (Plavix) 75 mg PO DAILY [facility] Stop: 02/19/19 08:59 Last Admin: 12/24/18 09:07 Dose: 75 mg Dextrose (D50w) 50 ml IVP PRN PRN PRN Reason: Blood Glucose less than 70 Stop: 02/18/19 21:08 Dextrose (Glutose 40%) 18.75 gm PO PRN PRN PRN Reason: Blood Glucose less than 70 Stop: 02/18/19 21:08 Docusate Sodium (Colace) 250 mg PO QPM [facility] Stop: 02/19/19 16:59 Last Admin: 12/23/18 16:32 Dose: 250 mg Doxepin HCl (Sinequan) 50 mg PO [facility] Stop: 02/19/19 20:59 Last Admin: 12/23/18 21:52 Dose: 50 mg Fluticasone Propionate (Flonase) 2 spr NS DAILY PRN PRN Reason: ALLERGIC RHINITIS Stop: 02/18/19 21:02 Glucagon (Glucagen) 1 mg IM PRN PRN PRN Reason: Blood Glucose less than 70 Stop: 02/18/19 21:08 Insulin Glargine (Lantus Insulin) 10 units SUBQ [facility] Stop: 02/19/19 20:59 Last Admin: 12/23/18 21:54 Dose: 10 unit Insulin Human Lispro (Humalog Insulin Sliding Scale) 0 units SUBQ [facility]; Protocol Stop: 02/19/19 07:29 Last Admin: 12/24/18 11:42 Dose: Not Given Labetalol HCl (Trandate) 100 mg PO [facility] Stop: 02/19/19 20:59 Last Admin: 12/23/18 21:53 Dose: 100 mg Lactulose (Cephulac) 20 gm PO [facility] Stop: 02/19/19 20:59 Last Admin: 12/23/18 21:53 Dose: 20 gm Lisinopril (Zestril) 2.5 mg PO DAILY [facility] Stop: 02/19/19 08:59 Last Admin: 12/24/18 09:07 Dose: 2.5 mg Magnesium Hydroxide (Milk Of Magnesia) 30 ml PO HS PRN PRN Reason: Constipation Multivitamins/Vitamin C (Theragran) 1 tab PO DAILY [facility] Stop: 02/19/19 08:59 Last Admin: 12/24/18 09:06 Dose: 1 tab Mupirocin (Bactroban Oint) 1 appl NS BID [facility]; Protocol Stop: 12/26/18 17:01 Last Admin: 12/24/18 09:09 Dose: 1 appl Sertraline HCl (Zoloft) 150 mg PO DAILY [facility]; Protocol Stop: 02/20/19 09:59 Last Admin: 12/24/18 09:07 Dose: 150 mg Simvastatin (Zocor) 10 mg PO HS [facility]; Protocol Stop: 02/19/19 20:59 Last Admin: 12/23/18 21:54 Dose: 10 mg Tramadol HCl (Ultram) 50 mg PO BID PRN PRN Reason: MOD/SEVERE PAIN Stop: 02/18/19 21:02 Zolpidem Tartrate (Ambien) 5 mg PO HS PRN PRN Reason: Insomnia Stop: 02/18/19 21:38 Last Admin: 12/23/18 21:30 Dose: 5 mg General: alert HEENT: NC/AT, PERRLA, EOMI, anicteric sclerae, throat clear Neck: Supple, No JVD, No thyromegaly, +2 carotid pulse wo bruit, No LAD Lungs: CTAB Cardiovascular: RRR, Normal S1, Normal S2, without murmur Abdomen: soft, non-tender, non-distended Extremities: clear Neurological: alert, other (HE HAS LEFT SIDE WEAK) Internal Medicine Assmt/Plan - Assessment Assessment: 1.HTN. 2.CVA. 3.DM. 4.DEPRESSION - Plan Plan: CONTINUE ON CURRENT MEDICATION AND DIET. Nutritional Asmnt/Malnutr-PDOC - Dietary Evaluation Malnutrition Findings (Please click <Entered> for more info): Nutritional Asmnt/Malnutrition Start: 12/23/18 18: 38 Text: Status: Active Freq: Protocol: Document 12/23/18 18:38 [email or web address] (Rec: 12/23/18 18:45 [email or web address]) Nutritional Asmnt/Malnutrition Patient General Information Nutritional Screening Moderate Risk Diagnosis PSYCHOSIS NOS Pertinent Medical Hx/Surgical Hx HTN, DM, CVA with left hemiplegia, depression. Subjective Information Pt seen lying in bed, reports decreased appetite because he doesn't like the food on current diet rx. Reports some nausea, says he typically likes to eat fish such as salmon or flounder twice a week, dislikes tilapia. Current Diet Order/ Nutrition Support Cardiac Patient / S.O Can Pertinent Medications maalox, plavix, colace, insulin, labetalol, lactulose, lisinopril, MOM, MVI Pertinent Labs Glucose 142 mg/dl; POC glucose 112-133 mg/dl (12/22 08:00- 19:59) Nutritional Hx/Data Height 1.75 m Height (Calculated Centimeters) 175.3 Current Weight (lbs) 71.668 kg Weight (Calculated Kilograms) 71.7 Weight (Calculated Grams) 61774.6 Usual body Weight (lbs) 205 % Usual Body Weight 77 [place] Body Weight 160 lb, 72.7 kg % [place] Body Weight 99 Body Mass Index (BMI) 23.3 Recent Weight Change No Weight Status Approriate GI Symptoms GI Symptoms Nausea Last BM 12/22 Difficult in: None Food Allergies No Cultural/Ethnic/Taoist Belief not reported Usual diet at home not reported Skin Integrity/Comment: no noted pressure injury/non- healing wounds Current %PO Good (75-100%) Estimated Nutritional Goals BEE in Kcals: Using Current wt Calories/Kcals/Kg 25-30 Kcals Calculated 7670-0762 Protein: Using Current wt Protein g/k.8-1 Protein Calculated 57-72 Fluid: ml 4769-6821 Nutritional Problem 1. Problem Problem Decreased nutrient needs- sodium- related to high blood pressure as evidenced by documented hx of HTN per medical record. Malnutrition Alert Is there a minimum of two criteria No selected? Query Text:Check all the applicable criteria. A minimum of two criteria are recommended for diagnosis of either severe or non-severe malnutrition. Malnutrition Related to Morbid Obesity Malnutrition related to morbid obesity No Intervention/Recommendation Comments Consider liberalizing diet to Regular, Low Sodium; consider consistent carbohdyrate modification if glucose trends >180. Expected Outcomes/Goals Expected Outcomes/Goals 1- Maintain PO intakes 75-100% of all meals 2- Maintain BG 80-180 mg/dl- insulin management per MD. Electronically Signed By: Chanel Ponce, MPH, RDN Clinical Dietitian 7:44 PM,
[2018-12-24] MEDS: Lactulose 10 Gm/15 mL 30mL UDC PO SCH (21:24)
[2018-12-24] MEDS: Insulin Glargine 100 units/ml 10ml Vial SUBQ SCH (21:39)
[2018-12-25] MEDS: INSULIN LISPRO SLIDING SCALE 100 UNITS/ML UNIT SUBQ SCH ×4 (06:33→21:04)
[2018-12-25] MEDS: Multivitamin Tab PO SCH (09:51)
--- NOTE | 2018-12-25 11:58 | General Progress Note ---
Subjective - Review of Systems Service Date: 12/25/18 Subjective: resting comfortably no distress Objective - Results Result Diagrams: 12/21/18 06:30 12/21/18 06:30 Recent Labs: Laboratory Last Values WBC 8.6 Th/cmm (4.8-10.8) 12/21/18 06:30 RBC 4.71 Mil/cmm (4.30-5.70) 12/21/18 06:30 Hgb 14.1 gm/dL (12-16) 12/21/18 06:30 Hct 42.4 % (41.0-60) 12/21/18 06:30 MCV 90.0 fl (80-99) 12/21/18 06:30 MCH 30.0 pg (26.0-30.0) 12/21/18 06:30 MCHC Differential 33.4 pg (28.0-36.0) 12/21/18 06:30 RDW 13.2 % (11.5-20.0) 12/21/18 06:30 Plt Count 327 Th/cmm (150-400) 12/21/18 06:30 MPV 6.9 fl 12/21/18 06:30 Neutrophils % 56.7 % (40.0-80.0) 12/21/18 06:30 Lymphocytes % 28.8 % (20.0-50.0) 12/21/18 06:30 Monocytes % 10.0 % (2.0-10.0) 12/21/18 06:30 Eosinophils % 4.1 % (0.0-5.0) 12/21/18 06:30 Basophils % 0.4 % (0.0-2.0) 12/21/18 06:30 PT 11.0 SECONDS (9.5-11.5) 12/20/18 15:30 INR 1.06 (0.5-1.4) 12/20/18 15:30 PTT (Actin FS) 29.6 SECONDS (26.0-38.0) 12/20/18 15:30 Sodium 137 mEq/L (136-145) 12/21/18 06:30 Potassium 3.9 mEq/L (3.5-5.1) 12/21/18 06:30 Chloride 104 mEq/L (98-107) 12/21/18 06:30 Carbon Dioxide 24.4 mEq/L (21.0-31.0) 12/21/18 06:30 Anion Gap 12.5 (7.0-16.0) 12/21/18 06:30 BUN 17 mg/dL (7-25) 12/21/18 06:30 Creatinine 1.1 mg/dL (0.7-1.3) 12/21/18 06:30 Est GFR ( Amer) > 60.0 ml/min (>90) 12/21/18 06:30 Est GFR (Non-Af Amer) > 60.0 ml/min 12/21/18 06:30 BUN/Creatinine Ratio 15.5 12/21/18 06:30 Glucose 142 mg/dL (70-105) H 12/21/18 06:30 POC Glucose 161 MG/DL (70 - 105) H 12/25/18 05:46 Calcium 9.2 mg/dL (8.6-10.3) 12/21/18 06:30 Total Bilirubin 0.5 mg/dL (0.3-1.0) 12/21/18 06:30 AST 12 U/L (13-39) L 12/21/18 06:30 ALT 12 U/L (7-52) 12/21/18 06:30 Alkaline Phosphatase 57 U/L (34-104) 12/21/18 06:30 Total Protein 6.9 gm/dL (6.0-8.3) 12/21/18 06:30 Albumin 3.8 gm/dL (4.2-5.5) L 12/21/18 06:30 Globulin 3.1 gm/dL 12/21/18 06:30 Albumin/Globulin Ratio 1.2 (1.0-1.8) 12/21/18 06:30 Triglycerides 118 mg/dL (<150) 12/20/18 18:50 Cholesterol 145 mg/dL (<200) 12/20/18 18:50 LDL Cholesterol Direct 100 mg/dL (75-193) 12/20/18 18:50 HDL Cholesterol 26 mg/dL (23-92) 12/20/18 18:50 Urine Source CLEAN C 12/20/18 14:45 Urine Color YELLOW 12/20/18 14:45 Urine Clarity CLEAR (CLEAR) 12/20/18 14:45 Urine pH 6.5 (4.6 - 8.0) 12/20/18 14:45 Ur Specific [place] 1.015 (1.005-1.030) 12/20/18 14:45 Urine Protein NEGATIVE mg/dL (NEGATIVE) 12/20/18 14:45 Urine Glucose (UA) NEGATIVE mg/dL (NEGATIVE) 12/20/18 14:45 Urine Ketones NEGATIVE mg/dL (NEGATIVE) 12/20/18 14:45 Urine Blood NEGATIVE (NEGATIVE) 12/20/18 14:45 Urine Nitrate NEGATIVE (NEGATIVE) 12/20/18 14:45 Urine Bilirubin NEGATIVE (NEGATIVE) 12/20/18 14:45 Urine Urobilinogen 1.0 E.U./dL (0.2 - 1.0) 12/20/18 14:45 Ur Leukocyte Esterase NEGATIVE (NEGATIVE) 12/20/18 14:45 Urine RBC 0-2 /hpf (0-5) H 12/20/18 14:45 Urine WBC 0-2 /hpf (0-5) 12/20/18 14:45 Ur Epithelial Cells FEW /lpf (FEW) 12/20/18 14:45 Urine Bacteria FEW /hpf (NONE SEEN) 12/20/18 14:45 Urine Mucus FEW /lpf (FEW) 12/20/18 14:45 - Physical Exam Vitals and I&O: Vital Signs Temp 98.5 F 12/25/18 05:52 Pulse 114 12/25/18 09:51 Resp 20 12/25/18 05:52 BP 110/90 12/25/18 09:51 Pulse Ox 99 12/25/18 05:52 Intake & Output 12/24/18 12/25/18 12/25/18 18:59 06:59 18:59 Intake Total 960 240 Balance 960 240 Intake: Oral 960 240 Other: # Voids 4 2 # Bowel Movements 1 0 Stool Characteristics Formed Formed Active Medications: Current Medications Acetaminophen (Tylenol) 650 mg PO Q4HR PRN PRN Reason: Mild Pain / Temp above 100 Stop: 02/18/19 17:30 Last Admin: 12/21/18 20:56 Dose: 650 mg Al Hydrox/Mg Hydrox/Simethicone (Maalox) 30 ml PO Q4HR PRN PRN Reason: GI DISTRESS Stop: 02/18/19 17:30 Cilostazol (Pletal) 100 mg PO BID [facility] Stop: 02/19/19 08:59 Last Admin: 12/25/18 09:52 Dose: 100 mg Clopidogrel Bisulfate (Plavix) 75 mg PO DAILY [facility] Stop: 02/19/19 08:59 Last Admin: 12/25/18 09:52 Dose: 75 mg Dextrose (D50w) 50 ml IVP PRN PRN PRN Reason: Blood Glucose less than 70 Stop: 02/18/19 21:08 Dextrose (Glutose 40%) 18.75 gm PO PRN PRN PRN Reason: Blood Glucose less than 70 Stop: 02/18/19 21:08 Docusate Sodium (Colace) 250 mg PO QPM [facility] Stop: 02/19/19 16:59 Last Admin: 12/24/18 17:19 Dose: 250 mg Doxepin HCl (Sinequan) 50 mg PO [facility] Stop: 02/19/19 20:59 Last Admin: 12/24/18 21:24 Dose: 50 mg Fluticasone Propionate (Flonase) 2 spr NS DAILY PRN PRN Reason: ALLERGIC RHINITIS Stop: 02/18/19 21:02 Glucagon (Glucagen) 1 mg IM PRN PRN PRN Reason: Blood Glucose less than 70 Stop: 02/18/19 21:08 Insulin Glargine (Lantus Insulin) 10 units SUBQ [facility] Stop: 02/19/19 20:59 Last Admin: 12/24/18 21:39 Dose: 10 unit Insulin Human Lispro (Humalog Insulin Sliding Scale) 0 units SUBQ [facility]; Protocol Stop: 02/19/19 07:29 Last Admin: 12/25/18 11:47 Dose: Not Given Labetalol HCl (Trandate) 100 mg PO [facility] Stop: 02/19/19 20:59 Last Admin: 12/24/18 21:30 Dose: Not Given Lactulose (Cephulac) 20 gm PO [facility] Stop: 02/19/19 20:59 Last Admin: 12/24/18 21:24 Dose: 20 gm Lisinopril (Zestril) 2.5 mg PO DAILY [facility] Stop: 02/19/19 08:59 Last Admin: 12/25/18 09:51 Dose: 2.5 mg Magnesium Hydroxide (Milk Of Magnesia) 30 ml PO HS PRN PRN Reason: Constipation Multivitamins/Vitamin C (Theragran) 1 tab PO DAILY [facility] Stop: 02/19/19 08:59 Last Admin: 12/25/18 09:51 Dose: 1 tab Mupirocin (Bactroban Oint) 1 appl NS BID [facility]; Protocol Stop: 12/26/18 17:01 Last Admin: 12/25/18 09:52 Dose: 1 appl Sertraline HCl (Zoloft) 150 mg PO DAILY [facility]; Protocol Stop: 02/20/19 09:59 Last Admin: 12/25/18 09:54 Dose: 150 mg Simvastatin (Zocor) 10 mg PO HS [facility]; Protocol Stop: 02/19/19 20:59 Last Admin: 12/24/18 21:26 Dose: 10 mg Tramadol HCl (Ultram) 50 mg PO BID PRN PRN Reason: MOD/SEVERE PAIN Stop: 02/18/19 21:02 Zolpidem Tartrate (Ambien) 5 mg PO HS PRN PRN Reason: Insomnia Stop: 02/18/19 21:38 Last Admin: 12/24/18 21:25 Dose: 5 mg General: No acute distress HEENT: Atraumatic, PERRLA Neck: Supple, JVD Cardiovascular: Regular rate, Normal S1, Normal S2 Lungs: Clear to auscultation Abdomen: Bowel sounds, Soft Assessment/Plan - Problem List Patient Problems: All Active Problems 51/50 HOLD FOR AGGRESSIVE BEHAVIOR (Acute) - Assessment Assessment: 1.HTN. 2.CVA. 3.DM. 4.DEPRESSION - Plan Plan: continue current treatment Nutritional Asmnt/Malnutr-PDOC - Dietary Evaluation Malnutrition Findings (Please click <Entered> for more info): Nutritional Asmnt/Malnutrition Start: 12/23/18 18: 38 Text: Status: Active Freq: Protocol: Document 12/23/18 18:38 [email or web address] (Rec: 12/23/18 18:45 [email or web address] [email or web address]) Nutritional Asmnt/Malnutrition Patient General Information Nutritional Screening Moderate Risk Diagnosis PSYCHOSIS NOS Pertinent Medical Hx/Surgical Hx HTN, DM, CVA with left hemiplegia, depression. Subjective Information Pt seen lying in bed, reports decreased appetite because he doesn't like the food on current diet rx. Reports some nausea, says he typically likes to eat fish such as salmon or flounder twice a week, dislikes tilapia. Current Diet Order/ Nutrition Support Cardiac Patient / S.O Can Pertinent Medications maalox, plavix, colace, insulin, labetalol, lactulose, lisinopril, MOM, MVI Pertinent Labs Glucose 142 mg/dl; POC glucose 112-133 mg/dl (12/22 08:00- 19:59) Nutritional Hx/Data Height 1.75 m Height (Calculated Centimeters) 175.3 Current Weight (lbs) 71.668 kg Weight (Calculated Kilograms) 71.7 Weight (Calculated Grams) 88894.6 Usual body Weight (lbs) 205 % Usual Body Weight 77 [place] Body Weight 160 lb, 72.7 kg % [place] Body Weight 99 Body Mass Index (BMI) 23.3 Recent Weight Change No Weight Status Approriate GI Symptoms GI Symptoms Nausea Last BM 12/22 Difficult in: None Food Allergies No Cultural/Ethnic/Buddhist Belief not reported Usual diet at home not reported Skin Integrity/Comment: no noted pressure injury/non- healing wounds Current %PO Good (75-100%) Estimated Nutritional Goals BEE in Kcals: Using Current wt Calories/Kcals/Kg 25-30 Kcals Calculated 3449-5374 Protein: Using Current wt Protein g/k.8-1 Protein Calculated 57-72 Fluid: ml 3428-4740 Nutritional Problem 1. Problem Problem Decreased nutrient needs- sodium- related to high blood pressure as evidenced by documented hx of HTN per medical record. Malnutrition Alert Is there a minimum of two criteria No selected? Query Text:Check all the applicable criteria. A minimum of two criteria are recommended for diagnosis of either severe or non-severe malnutrition. Malnutrition Related to Morbid Obesity Malnutrition related to morbid obesity No Intervention/Recommendation Comments Consider liberalizing diet to Regular, Low Sodium; consider consistent carbohdyrate modification if glucose trends >180. Expected Outcomes/Goals Expected Outcomes/Goals 1- Maintain PO intakes 75-100% of all meals 2- Maintain BG 80-180 mg/dl- insulin management per MD. Electronically Signed By: Chanel Ponce, MPH, RDN Clinical Dietitian 7:44 PM,
[2018-12-25] MEDS: Insulin Glargine 100 units/ml 10ml Vial SUBQ SCH (21:03)
[2018-12-25] MEDS: Lactulose 10 Gm/15 mL 30mL UDC PO SCH (21:05)
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
[2018-12-26] MEDS: INSULIN LISPRO SLIDING SCALE 100 UNITS/ML UNIT SUBQ SCH ×4 (06:32→20:50)
[2018-12-26] MEDS: Multivitamin Tab PO SCH (08:28)
--- NOTE | 2018-12-26 15:58 | General Progress Note ---
Subjective - Review of Systems Service Date: 12/26/18 Subjective: resting comfortably sitting in wheelchair no distress Objective - Results Result Diagrams: 12/21/18 06:30 12/21/18 06:30 Recent Labs: Laboratory Last Values WBC 8.6 Th/cmm (4.8-10.8) 12/21/18 06:30 RBC 4.71 Mil/cmm (4.30-5.70) 12/21/18 06:30 Hgb 14.1 gm/dL (12-16) 12/21/18 06:30 Hct 42.4 % (41.0-60) 12/21/18 06:30 MCV 90.0 fl (80-99) 12/21/18 06:30 MCH 30.0 pg (26.0-30.0) 12/21/18 06:30 MCHC Differential 33.4 pg (28.0-36.0) 12/21/18 06:30 RDW 13.2 % (11.5-20.0) 12/21/18 06:30 Plt Count 327 Th/cmm (150-400) 12/21/18 06:30 MPV 6.9 fl 12/21/18 06:30 Neutrophils % 56.7 % (40.0-80.0) 12/21/18 06:30 Lymphocytes % 28.8 % (20.0-50.0) 12/21/18 06:30 Monocytes % 10.0 % (2.0-10.0) 12/21/18 06:30 Eosinophils % 4.1 % (0.0-5.0) 12/21/18 06:30 Basophils % 0.4 % (0.0-2.0) 12/21/18 06:30 PT 11.0 SECONDS (9.5-11.5) 12/20/18 15:30 INR 1.06 (0.5-1.4) 12/20/18 15:30 PTT (Actin FS) 29.6 SECONDS (26.0-38.0) 12/20/18 15:30 Sodium 137 mEq/L (136-145) 12/21/18 06:30 Potassium 3.9 mEq/L (3.5-5.1) 12/21/18 06:30 Chloride 104 mEq/L (98-107) 12/21/18 06:30 Carbon Dioxide 24.4 mEq/L (21.0-31.0) 12/21/18 06:30 Anion Gap 12.5 (7.0-16.0) 12/21/18 06:30 BUN 17 mg/dL (7-25) 12/21/18 06:30 Creatinine 1.1 mg/dL (0.7-1.3) 12/21/18 06:30 Est GFR ( Amer) > 60.0 ml/min (>90) 12/21/18 06:30 Est GFR (Non-Af Amer) > 60.0 ml/min 12/21/18 06:30 BUN/Creatinine Ratio 15.5 12/21/18 06:30 Glucose 142 mg/dL (70-105) H 12/21/18 06:30 POC Glucose 144 MG/DL (70 - 105) H 12/25/18 16:31 Calcium 9.2 mg/dL (8.6-10.3) 12/21/18 06:30 Total Bilirubin 0.5 mg/dL (0.3-1.0) 12/21/18 06:30 AST 12 U/L (13-39) L 12/21/18 06:30 ALT 12 U/L (7-52) 12/21/18 06:30 Alkaline Phosphatase 57 U/L (34-104) 12/21/18 06:30 Total Protein 6.9 gm/dL (6.0-8.3) 12/21/18 06:30 Albumin 3.8 gm/dL (4.2-5.5) L 12/21/18 06:30 Globulin 3.1 gm/dL 12/21/18 06:30 Albumin/Globulin Ratio 1.2 (1.0-1.8) 12/21/18 06:30 Triglycerides 118 mg/dL (<150) 12/20/18 18:50 Cholesterol 145 mg/dL (<200) 12/20/18 18:50 LDL Cholesterol Direct 100 mg/dL (75-193) 12/20/18 18:50 HDL Cholesterol 26 mg/dL (23-92) 12/20/18 18:50 Urine Source CLEAN C 12/20/18 14:45 Urine Color YELLOW 12/20/18 14:45 Urine Clarity CLEAR (CLEAR) 12/20/18 14:45 Urine pH 6.5 (4.6 - 8.0) 12/20/18 14:45 Ur Specific [place] 1.015 (1.005-1.030) 12/20/18 14:45 Urine Protein NEGATIVE mg/dL (NEGATIVE) 12/20/18 14:45 Urine Glucose (UA) NEGATIVE mg/dL (NEGATIVE) 12/20/18 14:45 Urine Ketones NEGATIVE mg/dL (NEGATIVE) 12/20/18 14:45 Urine Blood NEGATIVE (NEGATIVE) 12/20/18 14:45 Urine Nitrate NEGATIVE (NEGATIVE) 12/20/18 14:45 Urine Bilirubin NEGATIVE (NEGATIVE) 12/20/18 14:45 Urine Urobilinogen 1.0 E.U./dL (0.2 - 1.0) 12/20/18 14:45 Ur Leukocyte Esterase NEGATIVE (NEGATIVE) 12/20/18 14:45 Urine RBC 0-2 /hpf (0-5) H 12/20/18 14:45 Urine WBC 0-2 /hpf (0-5) 12/20/18 14:45 Ur Epithelial Cells FEW /lpf (FEW) 12/20/18 14:45 Urine Bacteria FEW /hpf (NONE SEEN) 12/20/18 14:45 Urine Mucus FEW /lpf (FEW) 12/20/18 14:45 - Physical Exam Vitals and I&O: Vital Signs Temp 97.8 F 12/26/18 15:06 Pulse 126 12/26/18 15:06 Resp 20 12/26/18 15:06 BP 101/74 12/26/18 15:06 Pulse Ox 95 12/26/18 15:06 Intake & Output 12/25/18 12/26/18 12/26/18 18:59 06:59 18:59 Intake Total 480 Balance 480 Intake: Oral 480 Other: # Voids 2 # Bowel Movements 0 Stool Characteristics Formed Formed Formed Active Medications: Current Medications Acetaminophen (Tylenol) 650 mg PO Q4HR PRN PRN Reason: Mild Pain / Temp above 100 Stop: 02/18/19 17:30 Last Admin: 12/21/18 20:56 Dose: 650 mg Al Hydrox/Mg Hydrox/Simethicone (Maalox) 30 ml PO Q4HR PRN PRN Reason: GI DISTRESS Stop: 02/18/19 17:30 Cilostazol (Pletal) 100 mg PO BID [facility] Stop: 02/19/19 08:59 Last Admin: 12/26/18 08:56 Dose: 100 mg Clopidogrel Bisulfate (Plavix) 75 mg PO DAILY [facility] Stop: 02/19/19 08:59 Last Admin: 12/26/18 08:28 Dose: 75 mg Dextrose (D50w) 50 ml IVP PRN PRN PRN Reason: Blood Glucose less than 70 Stop: 02/18/19 21:08 Dextrose (Glutose 40%) 18.75 gm PO PRN PRN PRN Reason: Blood Glucose less than 70 Stop: 02/18/19 21:08 Docusate Sodium (Colace) 250 mg PO QPM [facility] Stop: 02/19/19 16:59 Last Admin: 12/25/18 17:07 Dose: 250 mg Doxepin HCl (Sinequan) 50 mg PO [facility] Stop: 02/19/19 20:59 Last Admin: 12/25/18 20:52 Dose: 50 mg Fluticasone Propionate (Flonase) 2 spr NS DAILY PRN PRN Reason: ALLERGIC RHINITIS Stop: 02/18/19 21:02 Glucagon (Glucagen) 1 mg IM PRN PRN PRN Reason: Blood Glucose less than 70 Stop: 02/18/19 21:08 Insulin Glargine (Lantus Insulin) 10 units SUBQ [facility] Stop: 02/19/19 20:59 Last Admin: 12/25/18 21:03 Dose: 10 unit Insulin Human Lispro (Humalog Insulin Sliding Scale) 0 units SUBQ [facility]; Protocol Stop: 02/19/19 07:29 Last Admin: 12/26/18 11:30 Dose: 2 units Labetalol HCl (Trandate) 100 mg PO [facility] Stop: 02/19/19 20:59 Last Admin: 12/25/18 21:07 Dose: 100 mg Lactulose (Cephulac) 20 gm PO [facility] Stop: 02/19/19 20:59 Last Admin: 12/25/18 21:05 Dose: Not Given Lisinopril (Zestril) 2.5 mg PO DAILY [facility] Stop: 02/19/19 08:59 Last Admin: 12/26/18 08:30 Dose: 2.5 mg Magnesium Hydroxide (Milk Of Magnesia) 30 ml PO HS PRN PRN Reason: Constipation Multivitamins/Vitamin C (Theragran) 1 tab PO DAILY [facility] Stop: 02/19/19 08:59 Last Admin: 12/26/18 08:28 Dose: 1 tab Mupirocin (Bactroban Oint) 1 appl NS BID [facility]; Protocol Stop: 12/26/18 17:01 Last Admin: 12/26/18 08:41 Dose: 1 appl Sertraline HCl (Zoloft) 150 mg PO DAILY [facility]; Protocol Stop: 02/20/19 09:59 Last Admin: 12/26/18 08:31 Dose: 150 mg Simvastatin (Zocor) 10 mg PO HS [facility]; Protocol Stop: 02/19/19 20:59 Last Admin: 12/25/18 20:54 Dose: 10 mg Tramadol HCl (Ultram) 50 mg PO BID PRN PRN Reason: MOD/SEVERE PAIN Stop: 02/18/19 21:02 Zolpidem Tartrate (Ambien) 5 mg PO HS PRN PRN Reason: Insomnia Stop: 02/18/19 21:38 Last Admin: 12/24/18 21:25 Dose: 5 mg General: No acute distress HEENT: Atraumatic, PERRLA Neck: Supple, JVD Cardiovascular: Regular rate, Normal S1, Normal S2 Lungs: Clear to auscultation Abdomen: Bowel sounds, Soft Assessment/Plan - Problem List Patient Problems: All Active Problems 51/50 HOLD FOR AGGRESSIVE BEHAVIOR (Acute) - Assessment Assessment: 1.HTN. 2.CVA with LEFT HEMIPLEGIA. 3.DM. 4.DEPRESSION - Plan Plan: continue current treatment Nutritional Asmnt/Malnutr-PDOC - Dietary Evaluation Malnutrition Findings (Please click <Entered> for more info): Nutritional Asmnt/Malnutrition Start: 12/23/18 18: 38 Text: Status: Active Freq: Protocol: Document 12/23/18 18:38 [email or web address] (Rec: 12/23/18 18:45 [email or web address]) Nutritional Asmnt/Malnutrition Patient General Information Nutritional Screening Moderate Risk Diagnosis PSYCHOSIS NOS Pertinent Medical Hx/Surgical Hx HTN, DM, CVA with left hemiplegia, depression. Subjective Information Pt seen lying in bed, reports decreased appetite because he doesn't like the food on current diet rx. Reports some nausea, says he typically likes to eat fish such as salmon or flounder twice a week, dislikes tilapia. Current Diet Order/ Nutrition Support Cardiac Patient / S.O Can Pertinent Medications maalox, plavix, colace, insulin, labetalol, lactulose, lisinopril, MOM, MVI Pertinent Labs Glucose 142 mg/dl; POC glucose 112-133 mg/dl (12/22 08:00- 19:59) Nutritional Hx/Data Height 1.75 m Height (Calculated Centimeters) 175.3 Current Weight (lbs) 71.668 kg Weight (Calculated Kilograms) 71.7 Weight (Calculated Grams) 70126.6 Usual body Weight (lbs) 205 % Usual Body Weight 77 [place] Body Weight 160 lb, 72.7 kg % [place] Body Weight 99 Body Mass Index (BMI) 23.3 Recent Weight Change No Weight Status Approriate GI Symptoms GI Symptoms Nausea Last BM 12/22 Difficult in: None Food Allergies No Cultural/Ethnic/Cheondoism Belief not reported Usual diet at home not reported Skin Integrity/Comment: no noted pressure injury/non- healing wounds Current %PO Good (75-100%) Estimated Nutritional Goals BEE in Kcals: Using Current wt Calories/Kcals/Kg 25-30 Kcals Calculated 2078-7190 Protein: Using Current wt Protein g/k.8-1 Protein Calculated 57-72 Fluid: ml 3049-9957 Nutritional Problem 1. Problem Problem Decreased nutrient needs- sodium- related to high blood pressure as evidenced by documented hx of HTN per medical record. Malnutrition Alert Is there a minimum of two criteria No selected? Query Text:Check all the applicable criteria. A minimum of two criteria are recommended for diagnosis of either severe or non-severe malnutrition. Malnutrition Related to Morbid Obesity Malnutrition related to morbid obesity No Intervention/Recommendation Comments Consider liberalizing diet to Regular, Low Sodium; consider consistent carbohdyrate modification if glucose trends >180. Expected Outcomes/Goals Expected Outcomes/Goals 1- Maintain PO intakes 75-100% of all meals 2- Maintain BG 80-180 mg/dl- insulin management per MD. Electronically Signed By: Chanel Ponce, MPH, RDN Clinical Dietitian 7:44 PM,
[2018-12-26] MEDS: Lactulose 10 Gm/15 mL 30mL UDC PO SCH (20:49)
[2018-12-26] MEDS: Insulin Glargine 100 units/ml 10ml Vial SUBQ SCH (20:51)
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
[2018-12-27] MEDS: INSULIN LISPRO SLIDING SCALE 100 UNITS/ML UNIT SUBQ SCH ×4 (06:45→21:30)
[2018-12-27] MEDS: Multivitamin Tab PO SCH (08:37)
--- NOTE | 2018-12-27 18:56 | Internal Medicine Prog Note ---
Internal Medicine Subjective - Subjective Service Date: 12/27/18 Patient seen and examined:: with staff (HE FEELS WELL) Patient is:: awake, verbal, in bed, talking Per staff patient has:: no adverse event Internal Medicine Objective - Results Result Diagrams: 12/21/18 06:30 12/21/18 06:30 Recent Labs: Laboratory Last Values WBC 8.6 Th/cmm (4.8-10.8) 12/21/18 06:30 RBC 4.71 Mil/cmm (4.30-5.70) 12/21/18 06:30 Hgb 14.1 gm/dL (12-16) 12/21/18 06:30 Hct 42.4 % (41.0-60) 12/21/18 06:30 MCV 90.0 fl (80-99) 12/21/18 06:30 MCH 30.0 pg (26.0-30.0) 12/21/18 06:30 MCHC Differential 33.4 pg (28.0-36.0) 12/21/18 06:30 RDW 13.2 % (11.5-20.0) 12/21/18 06:30 Plt Count 327 Th/cmm (150-400) 12/21/18 06:30 MPV 6.9 fl 12/21/18 06:30 Neutrophils % 56.7 % (40.0-80.0) 12/21/18 06:30 Lymphocytes % 28.8 % (20.0-50.0) 12/21/18 06:30 Monocytes % 10.0 % (2.0-10.0) 12/21/18 06:30 Eosinophils % 4.1 % (0.0-5.0) 12/21/18 06:30 Basophils % 0.4 % (0.0-2.0) 12/21/18 06:30 PT 11.0 SECONDS (9.5-11.5) 12/20/18 15:30 INR 1.06 (0.5-1.4) 12/20/18 15:30 PTT (Actin FS) 29.6 SECONDS (26.0-38.0) 12/20/18 15:30 Sodium 137 mEq/L (136-145) 12/21/18 06:30 Potassium 3.9 mEq/L (3.5-5.1) 12/21/18 06:30 Chloride 104 mEq/L (98-107) 12/21/18 06:30 Carbon Dioxide 24.4 mEq/L (21.0-31.0) 12/21/18 06:30 Anion Gap 12.5 (7.0-16.0) 12/21/18 06:30 BUN 17 mg/dL (7-25) 12/21/18 06:30 Creatinine 1.1 mg/dL (0.7-1.3) 12/21/18 06:30 Est GFR ( Amer) > 60.0 ml/min (>90) 12/21/18 06:30 Est GFR (Non-Af Amer) > 60.0 ml/min 12/21/18 06:30 BUN/Creatinine Ratio 15.5 12/21/18 06:30 Glucose 142 mg/dL (70-105) H 12/21/18 06:30 POC Glucose 141 MG/DL (70 - 105) H 12/27/18 16:25 Calcium 9.2 mg/dL (8.6-10.3) 12/21/18 06:30 Total Bilirubin 0.5 mg/dL (0.3-1.0) 12/21/18 06:30 AST 12 U/L (13-39) L 12/21/18 06:30 ALT 12 U/L (7-52) 12/21/18 06:30 Alkaline Phosphatase 57 U/L (34-104) 12/21/18 06:30 Total Protein 6.9 gm/dL (6.0-8.3) 12/21/18 06:30 Albumin 3.8 gm/dL (4.2-5.5) L 12/21/18 06:30 Globulin 3.1 gm/dL 12/21/18 06:30 Albumin/Globulin Ratio 1.2 (1.0-1.8) 12/21/18 06:30 Triglycerides 118 mg/dL (<150) 12/20/18 18:50 Cholesterol 145 mg/dL (<200) 12/20/18 18:50 LDL Cholesterol Direct 100 mg/dL (75-193) 12/20/18 18:50 HDL Cholesterol 26 mg/dL (23-92) 12/20/18 18:50 Urine Source CLEAN C 12/20/18 14:45 Urine Color YELLOW 12/20/18 14:45 Urine Clarity CLEAR (CLEAR) 12/20/18 14:45 Urine pH 6.5 (4.6 - 8.0) 12/20/18 14:45 Ur Specific [place] 1.015 (1.005-1.030) 12/20/18 14:45 Urine Protein NEGATIVE mg/dL (NEGATIVE) 12/20/18 14:45 Urine Glucose (UA) NEGATIVE mg/dL (NEGATIVE) 12/20/18 14:45 Urine Ketones NEGATIVE mg/dL (NEGATIVE) 12/20/18 14:45 Urine Blood NEGATIVE (NEGATIVE) 12/20/18 14:45 Urine Nitrate NEGATIVE (NEGATIVE) 12/20/18 14:45 Urine Bilirubin NEGATIVE (NEGATIVE) 12/20/18 14:45 Urine Urobilinogen 1.0 E.U./dL (0.2 - 1.0) 12/20/18 14:45 Ur Leukocyte Esterase NEGATIVE (NEGATIVE) 12/20/18 14:45 Urine RBC 0-2 /hpf (0-5) H 12/20/18 14:45 Urine WBC 0-2 /hpf (0-5) 12/20/18 14:45 Ur Epithelial Cells FEW /lpf (FEW) 12/20/18 14:45 Urine Bacteria FEW /hpf (NONE SEEN) 12/20/18 14:45 Urine Mucus FEW /lpf (FEW) 12/20/18 14:45 - Physical Exam Vitals and I&O: Vital Signs Temp 97.6 F 12/27/18 15:56 Pulse 96 12/27/18 15:56 Resp 20 12/27/18 15:56 BP 130/84 12/27/18 15:56 Pulse Ox 98 12/27/18 15:56 Intake & Output 12/26/18 12/27/18 12/27/18 18:59 06:59 18:59 Intake Total 950 240 950 Output Total 1050 1001 Balance -100 240 -51 Weight (lbs) 71.668 kg Intake: Oral 950 240 950 Output: Urine 1050 1000 Stool 1 Other: # Voids 4 # Bowel Movements 1 0 Stool Characteristics Formed Formed Formed Weight Source Bedscale Active Medications: Current Medications Acetaminophen (Tylenol) 650 mg PO Q4HR PRN PRN Reason: Mild Pain / Temp above 100 Stop: 02/18/19 17:30 Last Admin: 12/21/18 20:56 Dose: 650 mg Al Hydrox/Mg Hydrox/Simethicone (Maalox) 30 ml PO Q4HR PRN PRN Reason: GI DISTRESS Stop: 02/18/19 17:30 Cilostazol (Pletal) 100 mg PO BID [facility] Stop: 02/19/19 08:59 Last Admin: 12/27/18 16:38 Dose: 100 mg Clopidogrel Bisulfate (Plavix) 75 mg PO DAILY [facility] Stop: 02/19/19 08:59 Last Admin: 12/27/18 08:37 Dose: 75 mg Dextrose (D50w) 50 ml IVP PRN PRN PRN Reason: Blood Glucose less than 70 Stop: 02/18/19 21:08 Dextrose (Glutose 40%) 18.75 gm PO PRN PRN PRN Reason: Blood Glucose less than 70 Stop: 02/18/19 21:08 Docusate Sodium (Colace) 250 mg PO QPM [facility] Stop: 02/19/19 16:59 Last Admin: 12/27/18 16:38 Dose: 250 mg Doxepin HCl (Sinequan) 50 mg PO [facility] Stop: 02/19/19 20:59 Last Admin: 12/26/18 20:49 Dose: 50 mg Fluticasone Propionate (Flonase) 2 spr NS DAILY PRN PRN Reason: ALLERGIC RHINITIS Stop: 02/18/19 21:02 Glucagon (Glucagen) 1 mg IM PRN PRN PRN Reason: Blood Glucose less than 70 Stop: 02/18/19 21:08 Insulin Glargine (Lantus Insulin) 10 units SUBQ [facility] Stop: 02/19/19 20:59 Last Admin: 12/26/18 20:51 Dose: 10 unit Insulin Human Lispro (Humalog Insulin Sliding Scale) 0 units SUBQ [facility]; Protocol Stop: 02/19/19 07:29 Last Admin: 12/27/18 16:27 Dose: Not Given Labetalol HCl (Trandate) 100 mg PO [facility] Stop: 02/19/19 20:59 Last Admin: 12/26/18 20:50 Dose: 100 mg Lactulose (Cephulac) 20 gm PO [facility] Stop: 02/19/19 20:59 Last Admin: 12/26/18 20:49 Dose: 20 gm Lisinopril (Zestril) 2.5 mg PO DAILY [facility] Stop: 02/19/19 08:59 Last Admin: 12/27/18 08:37 Dose: 2.5 mg Magnesium Hydroxide (Milk Of Magnesia) 30 ml PO HS PRN PRN Reason: Constipation Multivitamins/Vitamin C (Theragran) 1 tab PO DAILY [facility] Stop: 02/19/19 08:59 Last Admin: 12/27/18 08:37 Dose: 1 tab Sertraline HCl (Zoloft) 150 mg PO DAILY [facility]; Protocol Stop: 02/20/19 09:59 Last Admin: 12/27/18 08:43 Dose: 150 mg Simvastatin (Zocor) 10 mg PO HS [facility]; Protocol Stop: 02/19/19 20:59 Last Admin: 12/26/18 20:49 Dose: 10 mg Tramadol HCl (Ultram) 50 mg PO BID PRN PRN Reason: MOD/SEVERE PAIN Stop: 02/18/19 21:02 Last Admin: 12/26/18 22:34 Dose: 50 mg Zolpidem Tartrate (Ambien) 5 mg PO HS PRN PRN Reason: Insomnia Stop: 02/18/19 21:38 Last Admin: 12/26/18 23:19 Dose: 5 mg General: alert HEENT: NC/AT, PERRLA, EOMI, anicteric sclerae, throat clear Neck: Supple, No JVD, No thyromegaly, +2 carotid pulse wo bruit, No LAD Lungs: CTAB Cardiovascular: RRR, Normal S1, Normal S2, without murmur Abdomen: soft, non-tender, non-distended Extremities: clear Neurological: alert, other (HE HAS LEFT SIDE WEAK) Internal Medicine Assmt/Plan - Assessment Assessment: 1.HTN. 2.CVA. 3.DM. 4.DEPRESSION - Plan Plan: CONTINUE ON CURRENT MEDICATION AND DIET. Nutritional Asmnt/Malnutr-PDOC - Dietary Evaluation Malnutrition Findings (Please click <Entered> for more info): Nutritional Asmnt/Malnutrition Start: 12/23/18 18: 38 Text: Status: Active Freq: Protocol: Document 12/23/18 18:38 [email or web address] (Rec: 12/23/18 18:45 [email or web address]) Nutritional Asmnt/Malnutrition Patient General Information Nutritional Screening Moderate Risk Diagnosis PSYCHOSIS NOS Pertinent Medical Hx/Surgical Hx HTN, DM, CVA with left hemiplegia, depression. Subjective Information Pt seen lying in bed, reports decreased appetite because he doesn't like the food on current diet rx. Reports some nausea, says he typically likes to eat fish such as salmon or flounder twice a week, dislikes tilapia. Current Diet Order/ Nutrition Support Cardiac Patient / S.O Can Pertinent Medications maalox, plavix, colace, insulin, labetalol, lactulose, lisinopril, MOM, MVI Pertinent Labs Glucose 142 mg/dl; POC glucose 112-133 mg/dl (12/22 08:00- 19:59) Nutritional Hx/Data Height 1.75 m Height (Calculated Centimeters) 175.3 Current Weight (lbs) 71.668 kg Weight (Calculated Kilograms) 71.7 Weight (Calculated Grams) 73332.6 Usual body Weight (lbs) 205 % Usual Body Weight 77 [place] Body Weight 160 lb, 72.7 kg % [place] Body Weight 99 Body Mass Index (BMI) 23.3 Recent Weight Change No Weight Status Approriate GI Symptoms GI Symptoms Nausea Last BM 12/22 Difficult in: None Food Allergies No Cultural/Ethnic/Sikh Belief not reported Usual diet at home not reported Skin Integrity/Comment: no noted pressure injury/non- healing wounds Current %PO Good (75-100%) Estimated Nutritional Goals BEE in Kcals: Using Current wt Calories/Kcals/Kg 25-30 Kcals Calculated 3425-2507 Protein: Using Current wt Protein g/k.8-1 Protein Calculated 57-72 Fluid: ml 5680-3837 Nutritional Problem 1. Problem Problem Decreased nutrient needs- sodium- related to high blood pressure as evidenced by documented hx of HTN per medical record. Malnutrition Alert Is there a minimum of two criteria No selected? Query Text:Check all the applicable criteria. A minimum of two criteria are recommended for diagnosis of either severe or non-severe malnutrition. Malnutrition Related to Morbid Obesity Malnutrition related to morbid obesity No Intervention/Recommendation Comments Consider liberalizing diet to Regular, Low Sodium; consider consistent carbohdyrate modification if glucose trends >180. Expected Outcomes/Goals Expected Outcomes/Goals 1- Maintain PO intakes 75-100% of all meals 2- Maintain BG 80-180 mg/dl- insulin management per MD. Electronically Signed By: Chanel Ponce, MPH, RDN Clinical Dietitian 7:44 PM,
[2018-12-27] MEDS: Lactulose 10 Gm/15 mL 30mL UDC PO SCH (21:17)
[2018-12-27] MEDS: Insulin Glargine 100 units/ml 10ml Vial SUBQ SCH (21:29)
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
[2018-12-28] MEDS: INSULIN LISPRO SLIDING SCALE 100 UNITS/ML UNIT SUBQ SCH ×4 (06:46→21:12)
[2018-12-28] MEDS: Multivitamin Tab PO SCH (08:15)
[2018-12-28] MEDS: Lactulose 10 Gm/15 mL 30mL UDC PO SCH (21:02)
[2018-12-28] MEDS: Insulin Glargine 100 units/ml 10ml Vial SUBQ SCH (21:12)
--- NOTE | 2018-12-28 21:40 | Internal Medicine Prog Note ---
Internal Medicine Subjective - Subjective Service Date: 12/28/18 Patient seen and examined:: without staff (HE FEELS WELL) Patient is:: awake, verbal, in bed, talking Per staff patient has:: no adverse event Internal Medicine Objective - Results Result Diagrams: 12/21/18 06:30 12/21/18 06:30 Recent Labs: Laboratory Last Values WBC 8.6 Th/cmm (4.8-10.8) 12/21/18 06:30 RBC 4.71 Mil/cmm (4.30-5.70) 12/21/18 06:30 Hgb 14.1 gm/dL (12-16) 12/21/18 06:30 Hct 42.4 % (41.0-60) 12/21/18 06:30 MCV 90.0 fl (80-99) 12/21/18 06:30 MCH 30.0 pg (26.0-30.0) 12/21/18 06:30 MCHC Differential 33.4 pg (28.0-36.0) 12/21/18 06:30 RDW 13.2 % (11.5-20.0) 12/21/18 06:30 Plt Count 327 Th/cmm (150-400) 12/21/18 06:30 MPV 6.9 fl 12/21/18 06:30 Neutrophils % 56.7 % (40.0-80.0) 12/21/18 06:30 Lymphocytes % 28.8 % (20.0-50.0) 12/21/18 06:30 Monocytes % 10.0 % (2.0-10.0) 12/21/18 06:30 Eosinophils % 4.1 % (0.0-5.0) 12/21/18 06:30 Basophils % 0.4 % (0.0-2.0) 12/21/18 06:30 PT 11.0 SECONDS (9.5-11.5) 12/20/18 15:30 INR 1.06 (0.5-1.4) 12/20/18 15:30 PTT (Actin FS) 29.6 SECONDS (26.0-38.0) 12/20/18 15:30 Sodium 137 mEq/L (136-145) 12/21/18 06:30 Potassium 3.9 mEq/L (3.5-5.1) 12/21/18 06:30 Chloride 104 mEq/L (98-107) 12/21/18 06:30 Carbon Dioxide 24.4 mEq/L (21.0-31.0) 12/21/18 06:30 Anion Gap 12.5 (7.0-16.0) 12/21/18 06:30 BUN 17 mg/dL (7-25) 12/21/18 06:30 Creatinine 1.1 mg/dL (0.7-1.3) 12/21/18 06:30 Est GFR ( Amer) > 60.0 ml/min (>90) 12/21/18 06:30 Est GFR (Non-Af Amer) > 60.0 ml/min 12/21/18 06:30 BUN/Creatinine Ratio 15.5 12/21/18 06:30 Glucose 142 mg/dL (70-105) H 12/21/18 06:30 POC Glucose 134 MG/DL (70 - 105) H 12/28/18 20:38 Calcium 9.2 mg/dL (8.6-10.3) 12/21/18 06:30 Total Bilirubin 0.5 mg/dL (0.3-1.0) 12/21/18 06:30 AST 12 U/L (13-39) L 12/21/18 06:30 ALT 12 U/L (7-52) 12/21/18 06:30 Alkaline Phosphatase 57 U/L (34-104) 12/21/18 06:30 Total Protein 6.9 gm/dL (6.0-8.3) 12/21/18 06:30 Albumin 3.8 gm/dL (4.2-5.5) L 12/21/18 06:30 Globulin 3.1 gm/dL 12/21/18 06:30 Albumin/Globulin Ratio 1.2 (1.0-1.8) 12/21/18 06:30 Triglycerides 118 mg/dL (<150) 12/20/18 18:50 Cholesterol 145 mg/dL (<200) 12/20/18 18:50 LDL Cholesterol Direct 100 mg/dL (75-193) 12/20/18 18:50 HDL Cholesterol 26 mg/dL (23-92) 12/20/18 18:50 Urine Source CLEAN C 12/20/18 14:45 Urine Color YELLOW 12/20/18 14:45 Urine Clarity CLEAR (CLEAR) 12/20/18 14:45 Urine pH 6.5 (4.6 - 8.0) 12/20/18 14:45 Ur Specific [place] 1.015 (1.005-1.030) 12/20/18 14:45 Urine Protein NEGATIVE mg/dL (NEGATIVE) 12/20/18 14:45 Urine Glucose (UA) NEGATIVE mg/dL (NEGATIVE) 12/20/18 14:45 Urine Ketones NEGATIVE mg/dL (NEGATIVE) 12/20/18 14:45 Urine Blood NEGATIVE (NEGATIVE) 12/20/18 14:45 Urine Nitrate NEGATIVE (NEGATIVE) 12/20/18 14:45 Urine Bilirubin NEGATIVE (NEGATIVE) 12/20/18 14:45 Urine Urobilinogen 1.0 E.U./dL (0.2 - 1.0) 12/20/18 14:45 Ur Leukocyte Esterase NEGATIVE (NEGATIVE) 12/20/18 14:45 Urine RBC 0-2 /hpf (0-5) H 12/20/18 14:45 Urine WBC 0-2 /hpf (0-5) 12/20/18 14:45 Ur Epithelial Cells FEW /lpf (FEW) 12/20/18 14:45 Urine Bacteria FEW /hpf (NONE SEEN) 12/20/18 14:45 Urine Mucus FEW /lpf (FEW) 12/20/18 14:45 - Physical Exam Vitals and I&O: Vital Signs Temp 97.1 F 12/28/18 19:51 Pulse 94 12/28/18 21:02 Resp 20 12/28/18 19:51 BP 111/74 12/28/18 21:02 Pulse Ox 96 12/28/18 19:51 Intake & Output 12/28/18 12/28/18 12/29/18 06:59 18:59 06:59 Intake Total 240 180 Balance 240 180 Weight (lbs) 71.668 kg Intake: Oral 240 180 Other: # Voids 4 1 # Bowel Movements 0 0 Weight Source Bedscale Active Medications: Current Medications Acetaminophen (Tylenol) 650 mg PO Q4HR PRN PRN Reason: Mild Pain / Temp above 100 Stop: 02/18/19 17:30 Last Admin: 12/21/18 20:56 Dose: 650 mg Al Hydrox/Mg Hydrox/Simethicone (Maalox) 30 ml PO Q4HR PRN PRN Reason: GI DISTRESS Stop: 02/18/19 17:30 Cilostazol (Pletal) 100 mg PO BID [facility] Stop: 02/19/19 08:59 Last Admin: 12/28/18 16:34 Dose: 100 mg Clopidogrel Bisulfate (Plavix) 75 mg PO DAILY [facility] Stop: 02/19/19 08:59 Last Admin: 12/28/18 08:16 Dose: 75 mg Dextrose (D50w) 50 ml IVP PRN PRN PRN Reason: Blood Glucose less than 70 Stop: 02/18/19 21:08 Dextrose (Glutose 40%) 18.75 gm PO PRN PRN PRN Reason: Blood Glucose less than 70 Stop: 02/18/19 21:08 Docusate Sodium (Colace) 250 mg PO QPM [facility] Stop: 02/19/19 16:59 Last Admin: 12/28/18 16:34 Dose: 250 mg Doxepin HCl (Sinequan) 50 mg PO [facility] Stop: 02/19/19 20:59 Last Admin: 12/28/18 21:02 Dose: 50 mg Fluticasone Propionate (Flonase) 2 spr NS DAILY PRN PRN Reason: ALLERGIC RHINITIS Stop: 02/18/19 21:02 Glucagon (Glucagen) 1 mg IM PRN PRN PRN Reason: Blood Glucose less than 70 Stop: 02/18/19 21:08 Insulin Glargine (Lantus Insulin) 10 units SUBQ [facility] Stop: 02/19/19 20:59 Last Admin: 12/28/18 21:12 Dose: 10 unit Insulin Human Lispro (Humalog Insulin Sliding Scale) 0 units SUBQ [facility]; Protocol Stop: 02/19/19 07:29 Last Admin: 12/28/18 21:12 Dose: Not Given Labetalol HCl (Trandate) 100 mg PO [facility] Stop: 02/19/19 20:59 Last Admin: 12/28/18 21:02 Dose: 100 mg Lactulose (Cephulac) 20 gm PO [facility] Stop: 02/19/19 20:59 Last Admin: 12/28/18 21:02 Dose: 20 gm Lisinopril (Zestril) 2.5 mg PO DAILY [facility] Stop: 02/19/19 08:59 Last Admin: 12/28/18 08:15 Dose: 2.5 mg Magnesium Hydroxide (Milk Of Magnesia) 30 ml PO HS PRN PRN Reason: Constipation Multivitamins/Vitamin C (Theragran) 1 tab PO DAILY [facility] Stop: 02/19/19 08:59 Last Admin: 12/28/18 08:15 Dose: 1 tab Sertraline HCl (Zoloft) 150 mg PO DAILY [facility]; Protocol Stop: 02/20/19 09:59 Last Admin: 12/28/18 08:16 Dose: 150 mg Simvastatin (Zocor) 10 mg PO HS [facility]; Protocol Stop: 02/19/19 20:59 Last Admin: 12/28/18 21:02 Dose: 10 mg Tramadol HCl (Ultram) 50 mg PO BID PRN PRN Reason: MOD/SEVERE PAIN Stop: 02/18/19 21:02 Last Admin: 12/26/18 22:34 Dose: 50 mg Zolpidem Tartrate (Ambien) 5 mg PO HS PRN PRN Reason: Insomnia Stop: 02/18/19 21:38 Last Admin: 12/28/18 21:03 Dose: 5 mg General: alert HEENT: NC/AT, PERRLA, EOMI, anicteric sclerae, throat clear Neck: Supple, No JVD, No thyromegaly, +2 carotid pulse wo bruit, No LAD Lungs: CTAB Cardiovascular: RRR, Normal S1, Normal S2, without murmur Abdomen: soft, non-tender, non-distended Extremities: clear Neurological: alert, other (HE HAS LEFT SIDE WEAK) Internal Medicine Assmt/Plan - Assessment Assessment: 1.HTN. 2.CVA. 3.DM. 4.DEPRESSION - Plan Plan: CONTINUE ON CURRENT MEDICATION AND DIET. Nutritional Asmnt/Malnutr-PDOC - Dietary Evaluation Malnutrition Findings (Please click <Entered> for more info): Nutritional Asmnt/Malnutrition Start: 12/23/18 18: 38 Text: Status: Active Freq: Protocol: Document 12/23/18 18:38 [email or web address] (Rec: 12/23/18 18:45 [email or web address]) Nutritional Asmnt/Malnutrition Patient General Information Nutritional Screening Moderate Risk Diagnosis PSYCHOSIS NOS Pertinent Medical Hx/Surgical Hx HTN, DM, CVA with left hemiplegia, depression. Subjective Information Pt seen lying in bed, reports decreased appetite because he doesn't like the food on current diet rx. Reports some nausea, says he typically likes to eat fish such as salmon or flounder twice a week, dislikes tilapia. Current Diet Order/ Nutrition Support Cardiac Patient / S.O Can Pertinent Medications maalox, plavix, colace, insulin, labetalol, lactulose, lisinopril, MOM, MVI Pertinent Labs Glucose 142 mg/dl; POC glucose 112-133 mg/dl (12/22 08:00- 19:59) Nutritional Hx/Data Height 1.75 m Height (Calculated Centimeters) 175.3 Current Weight (lbs) 71.668 kg Weight (Calculated Kilograms) 71.7 Weight (Calculated Grams) 41084.6 Usual body Weight (lbs) 205 % Usual Body Weight 77 [place] Body Weight 160 lb, 72.7 kg % [place] Body Weight 99 Body Mass Index (BMI) 23.3 Recent Weight Change No Weight Status Approriate GI Symptoms GI Symptoms Nausea Last BM 12/22 Difficult in: None Food Allergies No Cultural/Ethnic/Mandaen Belief not reported Usual diet at home not reported Skin Integrity/Comment: no noted pressure injury/non- healing wounds Current %PO Good (75-100%) Estimated Nutritional Goals BEE in Kcals: Using Current wt Calories/Kcals/Kg 25-30 Kcals Calculated 5141-7226 Protein: Using Current wt Protein g/k.8-1 Protein Calculated 57-72 Fluid: ml 3661-1424 Nutritional Problem 1. Problem Problem Decreased nutrient needs- sodium- related to high blood pressure as evidenced by documented hx of HTN per medical record. Malnutrition Alert Is there a minimum of two criteria No selected? Query Text:Check all the applicable criteria. A minimum of two criteria are recommended for diagnosis of either severe or non-severe malnutrition. Malnutrition Related to Morbid Obesity Malnutrition related to morbid obesity No Intervention/Recommendation Comments Consider liberalizing diet to Regular, Low Sodium; consider consistent carbohdyrate modification if glucose trends >180. Expected Outcomes/Goals Expected Outcomes/Goals 1- Maintain PO intakes 75-100% of all meals 2- Maintain BG 80-180 mg/dl- insulin management per MD. Electronically Signed By: Chanel Ponce, MPH, RDN Clinical Dietitian 7:44 PM,
--- NOTE | 2018-12-29 00:07 | Progress Notes ---
DATE: 12/28/2018 Case was discussed with staff of the patient, reviewed records. The patient was very angry today. He said that they like to him. They told him he is going to have surgery to his shoulders and back and that it was a lie that he came here that he is not aggressive and that he is not depressed. He continues to have poor insight, continues to be unable to make safe plan for his self-care. He has been compliant with the medication with no side effects, no sedation or nausea. He is minimizing that he is depressed. Unable to remember what happened that led to his admission, very irritable. We will continue to work with the patient in group therapy, milieu therapy and adjust the medications as needed. [facility]# [id number]
[2018-12-29] MEDS: INSULIN LISPRO SLIDING SCALE 100 UNITS/ML UNIT SUBQ SCH ×4 (06:32→21:19)
[2018-12-29] MEDS: Multivitamin Tab PO SCH (08:45)
--- NOTE | 2018-12-29 20:08 | Internal Medicine Prog Note ---
Internal Medicine Subjective - Subjective Service Date: 12/29/18 Patient seen and examined:: with staff (HE FEELS WELL) Patient is:: awake, verbal, in bed, talking Per staff patient has:: no adverse event Internal Medicine Objective - Results Result Diagrams: 12/21/18 06:30 12/21/18 06:30 Recent Labs: Laboratory Last Values WBC 8.6 Th/cmm (4.8-10.8) 12/21/18 06:30 RBC 4.71 Mil/cmm (4.30-5.70) 12/21/18 06:30 Hgb 14.1 gm/dL (12-16) 12/21/18 06:30 Hct 42.4 % (41.0-60) 12/21/18 06:30 MCV 90.0 fl (80-99) 12/21/18 06:30 MCH 30.0 pg (26.0-30.0) 12/21/18 06:30 MCHC Differential 33.4 pg (28.0-36.0) 12/21/18 06:30 RDW 13.2 % (11.5-20.0) 12/21/18 06:30 Plt Count 327 Th/cmm (150-400) 12/21/18 06:30 MPV 6.9 fl 12/21/18 06:30 Neutrophils % 56.7 % (40.0-80.0) 12/21/18 06:30 Lymphocytes % 28.8 % (20.0-50.0) 12/21/18 06:30 Monocytes % 10.0 % (2.0-10.0) 12/21/18 06:30 Eosinophils % 4.1 % (0.0-5.0) 12/21/18 06:30 Basophils % 0.4 % (0.0-2.0) 12/21/18 06:30 PT 11.0 SECONDS (9.5-11.5) 12/20/18 15:30 INR 1.06 (0.5-1.4) 12/20/18 15:30 PTT (Actin FS) 29.6 SECONDS (26.0-38.0) 12/20/18 15:30 Sodium 137 mEq/L (136-145) 12/21/18 06:30 Potassium 3.9 mEq/L (3.5-5.1) 12/21/18 06:30 Chloride 104 mEq/L (98-107) 12/21/18 06:30 Carbon Dioxide 24.4 mEq/L (21.0-31.0) 12/21/18 06:30 Anion Gap 12.5 (7.0-16.0) 12/21/18 06:30 BUN 17 mg/dL (7-25) 12/21/18 06:30 Creatinine 1.1 mg/dL (0.7-1.3) 12/21/18 06:30 Est GFR ( Amer) > 60.0 ml/min (>90) 12/21/18 06:30 Est GFR (Non-Af Amer) > 60.0 ml/min 12/21/18 06:30 BUN/Creatinine Ratio 15.5 12/21/18 06:30 Glucose 142 mg/dL (70-105) H 12/21/18 06:30 POC Glucose 126 MG/DL (70 - 105) H 12/29/18 16:33 Calcium 9.2 mg/dL (8.6-10.3) 12/21/18 06:30 Total Bilirubin 0.5 mg/dL (0.3-1.0) 12/21/18 06:30 AST 12 U/L (13-39) L 12/21/18 06:30 ALT 12 U/L (7-52) 12/21/18 06:30 Alkaline Phosphatase 57 U/L (34-104) 12/21/18 06:30 Total Protein 6.9 gm/dL (6.0-8.3) 12/21/18 06:30 Albumin 3.8 gm/dL (4.2-5.5) L 12/21/18 06:30 Globulin 3.1 gm/dL 12/21/18 06:30 Albumin/Globulin Ratio 1.2 (1.0-1.8) 12/21/18 06:30 Triglycerides 118 mg/dL (<150) 12/20/18 18:50 Cholesterol 145 mg/dL (<200) 12/20/18 18:50 LDL Cholesterol Direct 100 mg/dL (75-193) 12/20/18 18:50 HDL Cholesterol 26 mg/dL (23-92) 12/20/18 18:50 Urine Source CLEAN C 12/20/18 14:45 Urine Color YELLOW 12/20/18 14:45 Urine Clarity CLEAR (CLEAR) 12/20/18 14:45 Urine pH 6.5 (4.6 - 8.0) 12/20/18 14:45 Ur Specific [place] 1.015 (1.005-1.030) 12/20/18 14:45 Urine Protein NEGATIVE mg/dL (NEGATIVE) 12/20/18 14:45 Urine Glucose (UA) NEGATIVE mg/dL (NEGATIVE) 12/20/18 14:45 Urine Ketones NEGATIVE mg/dL (NEGATIVE) 12/20/18 14:45 Urine Blood NEGATIVE (NEGATIVE) 12/20/18 14:45 Urine Nitrate NEGATIVE (NEGATIVE) 12/20/18 14:45 Urine Bilirubin NEGATIVE (NEGATIVE) 12/20/18 14:45 Urine Urobilinogen 1.0 E.U./dL (0.2 - 1.0) 12/20/18 14:45 Ur Leukocyte Esterase NEGATIVE (NEGATIVE) 12/20/18 14:45 Urine RBC 0-2 /hpf (0-5) H 12/20/18 14:45 Urine WBC 0-2 /hpf (0-5) 12/20/18 14:45 Ur Epithelial Cells FEW /lpf (FEW) 12/20/18 14:45 Urine Bacteria FEW /hpf (NONE SEEN) 12/20/18 14:45 Urine Mucus FEW /lpf (FEW) 12/20/18 14:45 - Physical Exam Vitals and I&O: Vital Signs Temp 97.5 F 12/29/18 15:44 Pulse 97 12/29/18 15:44 Resp 20 12/29/18 15:44 BP 134/70 12/29/18 15:44 Pulse Ox 96 12/29/18 15:44 Intake & Output 12/29/18 12/29/18 12/30/18 06:59 18:59 06:59 Intake Total 180 Balance 180 Intake: Oral 180 Other: # Voids 2 # Bowel Movements 0 Active Medications: Current Medications Acetaminophen (Tylenol) 650 mg PO Q4HR PRN PRN Reason: Mild Pain / Temp above 100 Stop: 02/18/19 17:30 Last Admin: 12/21/18 20:56 Dose: 650 mg Al Hydrox/Mg Hydrox/Simethicone (Maalox) 30 ml PO Q4HR PRN PRN Reason: GI DISTRESS Stop: 02/18/19 17:30 Cilostazol (Pletal) 100 mg PO BID [facility] Stop: 02/19/19 08:59 Last Admin: 12/29/18 16:38 Dose: 100 mg Clopidogrel Bisulfate (Plavix) 75 mg PO DAILY [facility] Stop: 02/19/19 08:59 Last Admin: 12/29/18 08:45 Dose: 75 mg Dextrose (D50w) 50 ml IVP PRN PRN PRN Reason: BS below 70&not tolerate po Stop: 02/18/19 21:08 Dextrose (Glutose 40%) 18.75 gm PO PRN PRN PRN Reason: BS below 70&tolerate po Stop: 02/18/19 21:08 Docusate Sodium (Colace) 250 mg PO QPM [facility] Stop: 02/19/19 16:59 Last Admin: 12/29/18 16:11 Dose: 250 mg Doxepin HCl (Sinequan) 50 mg PO [facility] Stop: 02/19/19 20:59 Last Admin: 12/28/18 21:02 Dose: 50 mg Fluticasone Propionate (Flonase) 2 spr NS DAILY PRN PRN Reason: ALLERGIC RHINITIS Stop: 02/18/19 21:02 Glucagon (Glucagen) 1 mg IM PRN PRN PRN Reason: BS below 70&dextrose ineffecti Stop: 02/18/19 21:08 Insulin Glargine (Lantus Insulin) 10 units SUBQ [facility] Stop: 02/19/19 20:59 Last Admin: 12/28/18 21:12 Dose: 10 unit Insulin Human Lispro (Humalog Insulin Sliding Scale) 0 units SUBQ [facility]; Protocol Stop: 02/19/19 07:29 Last Admin: 12/29/18 16:38 Dose: Not Given Labetalol HCl (Trandate) 100 mg PO [facility] Stop: 02/19/19 20:59 Last Admin: 12/28/18 21:02 Dose: 100 mg Lactulose (Cephulac) 20 gm PO [facility] Stop: 02/19/19 20:59 Last Admin: 12/28/18 21:02 Dose: 20 gm Lisinopril (Zestril) 2.5 mg PO DAILY [facility] Stop: 02/19/19 08:59 Last Admin: 12/29/18 08:45 Dose: 2.5 mg Magnesium Hydroxide (Milk Of Magnesia) 30 ml PO HS PRN PRN Reason: Constipation Multivitamins/Vitamin C (Theragran) 1 tab PO DAILY [facility] Stop: 02/19/19 08:59 Last Admin: 12/29/18 08:45 Dose: 1 tab Sertraline HCl (Zoloft) 200 mg PO DAILY [facility]; Protocol Stop: 02/27/19 08:59 Last Admin: 12/29/18 08:44 Dose: 200 mg Simvastatin (Zocor) 10 mg PO HS [facility]; Protocol Stop: 02/19/19 20:59 Last Admin: 12/28/18 21:02 Dose: 10 mg Tramadol HCl (Ultram) 50 mg PO BID PRN PRN Reason: MOD/SEVERE PAIN Stop: 02/18/19 21:02 Last Admin: 12/29/18 13:30 Dose: 50 mg Zolpidem Tartrate (Ambien) 5 mg PO HS PRN PRN Reason: Insomnia Stop: 02/18/19 21:38 Last Admin: 12/28/18 21:03 Dose: 5 mg General: alert HEENT: NC/AT, PERRLA, EOMI, anicteric sclerae, throat clear Neck: Supple, No JVD, No thyromegaly, +2 carotid pulse wo bruit, No LAD Lungs: CTAB Cardiovascular: RRR, Normal S1, Normal S2, without murmur Abdomen: soft, non-tender, non-distended Extremities: clear Neurological: alert, other (HE HAS LEFT SIDE WEAK) Internal Medicine Assmt/Plan - Assessment Assessment: 1.HTN. 2.CVA. 3.DM. 4.DEPRESSION - Plan Plan: CONTINUE ON CURRENT MEDICATION AND DIET. Nutritional Asmnt/Malnutr-PDOC - Dietary Evaluation Malnutrition Findings (Please click <Entered> for more info): Nutritional Asmnt/Malnutrition Start: 12/23/18 18: 38 Text: Status: Active Freq: Protocol: Document 12/23/18 18:38 [email or web address] (Rec: 12/23/18 18:45 [email or web address]) Nutritional Asmnt/Malnutrition Patient General Information Nutritional Screening Moderate Risk Diagnosis PSYCHOSIS NOS Pertinent Medical Hx/Surgical Hx HTN, DM, CVA with left hemiplegia, depression. Subjective Information Pt seen lying in bed, reports decreased appetite because he doesn't like the food on current diet rx. Reports some nausea, says he typically likes to eat fish such as salmon or flounder twice a week, dislikes tilapia. Current Diet Order/ Nutrition Support Cardiac Patient / S.O Can Pertinent Medications maalox, plavix, colace, insulin, labetalol, lactulose, lisinopril, MOM, MVI Pertinent Labs Glucose 142 mg/dl; POC glucose 112-133 mg/dl (12/22 08:00- 19:59) Nutritional Hx/Data Height 1.75 m Height (Calculated Centimeters) 175.3 Current Weight (lbs) 71.668 kg Weight (Calculated Kilograms) 71.7 Weight (Calculated Grams) 60201.6 Usual body Weight (lbs) 205 % Usual Body Weight 77 [place] Body Weight 160 lb, 72.7 kg % [place] Body Weight 99 Body Mass Index (BMI) 23.3 Recent Weight Change No Weight Status Approriate GI Symptoms GI Symptoms Nausea Last BM 12/22 Difficult in: None Food Allergies No Cultural/Ethnic/Roman Catholic Belief not reported Usual diet at home not reported Skin Integrity/Comment: no noted pressure injury/non- healing wounds Current %PO Good (75-100%) Estimated Nutritional Goals BEE in Kcals: Using Current wt Calories/Kcals/Kg 25-30 Kcals Calculated 5722-6582 Protein: Using Current wt Protein g/k.8-1 Protein Calculated 57-72 Fluid: ml 4564-7932 Nutritional Problem 1. Problem Problem Decreased nutrient needs- sodium- related to high blood pressure as evidenced by documented hx of HTN per medical record. Malnutrition Alert Is there a minimum of two criteria No selected? Query Text:Check all the applicable criteria. A minimum of two criteria are recommended for diagnosis of either severe or non-severe malnutrition. Malnutrition Related to Morbid Obesity Malnutrition related to morbid obesity No Intervention/Recommendation Comments Consider liberalizing diet to Regular, Low Sodium; consider consistent carbohdyrate modification if glucose trends >180. Expected Outcomes/Goals Expected Outcomes/Goals 1- Maintain PO intakes 75-100% of all meals 2- Maintain BG 80-180 mg/dl- insulin management per MD. Electronically Signed By: Chanel Ponce, MPH, RDN Clinical Dietitian 7:44 PM,
[2018-12-29] MEDS: Lactulose 10 Gm/15 mL 30mL UDC PO SCH (21:12)
[2018-12-29] MEDS: Insulin Glargine 100 units/ml 10ml Vial SUBQ SCH (21:20)
[2018-12-30] MEDS: INSULIN LISPRO SLIDING SCALE 100 UNITS/ML UNIT SUBQ SCH ×4 (06:51→20:32)
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
[2018-12-30] MEDS: Multivitamin Tab PO SCH (10:07)
[2018-12-30] MEDS: Lactulose 10 Gm/15 mL 30mL UDC PO SCH (20:32)
[2018-12-30] MEDS: Insulin Glargine 100 units/ml 10ml Vial SUBQ SCH (20:41)
--- NOTE | 2018-12-30 21:26 | Progress Notes ---
DATE: 12/29/2018 SUBJECTIVE: Chart was reviewed and the patient interviewed. Also discussed the patient's condition with the staff and reviewed records and labs. The patient is still argumentative and is still in angry mood. The patient also continued to say "I want to go home." The patient also is still argumentative with the staff and with me. I tried to explain to the patient that we tried to contact his children, but they are not answering the phone and that they do not want to deal with him, according to Elisha Lawson. Also, is still angry and upset with Elisha Lawson and still thinks that he does not want to go back because of some issues over there. Otherwise, the patient still has severe anxiety and is argumentative for no reason. He also still needs lots of redirections and assurance. At the same time, he still thinks that he has a place ____. ASSESSMENT: The patient is still depressed and paranoid. TREATMENT PLAN: Continue to monitor his behavior and his condition closely. Also, we will continue his psychotropic medications, but we will increase Zoloft to 200 mg every day and continue to followup. Also, we will contact Elisha Lawson to discuss possibility of returning to [place]. [facility]# [id number]
--- NOTE | 2018-12-30 23:38 | Internal Medicine Prog Note ---
Internal Medicine Subjective - Subjective Service Date: 12/30/18 Patient seen and examined:: with staff (HE IS VERY CONFUSED) Patient is:: awake, verbal, in bed, talking Per staff patient has:: no adverse event Internal Medicine Objective - Results Result Diagrams: 12/21/18 06:30 12/21/18 06:30 Recent Labs: Laboratory Last Values WBC 8.6 Th/cmm (4.8-10.8) 12/21/18 06:30 RBC 4.71 Mil/cmm (4.30-5.70) 12/21/18 06:30 Hgb 14.1 gm/dL (12-16) 12/21/18 06:30 Hct 42.4 % (41.0-60) 12/21/18 06:30 MCV 90.0 fl (80-99) 12/21/18 06:30 MCH 30.0 pg (26.0-30.0) 12/21/18 06:30 MCHC Differential 33.4 pg (28.0-36.0) 12/21/18 06:30 RDW 13.2 % (11.5-20.0) 12/21/18 06:30 Plt Count 327 Th/cmm (150-400) 12/21/18 06:30 MPV 6.9 fl 12/21/18 06:30 Neutrophils % 56.7 % (40.0-80.0) 12/21/18 06:30 Lymphocytes % 28.8 % (20.0-50.0) 12/21/18 06:30 Monocytes % 10.0 % (2.0-10.0) 12/21/18 06:30 Eosinophils % 4.1 % (0.0-5.0) 12/21/18 06:30 Basophils % 0.4 % (0.0-2.0) 12/21/18 06:30 PT 11.0 SECONDS (9.5-11.5) 12/20/18 15:30 INR 1.06 (0.5-1.4) 12/20/18 15:30 PTT (Actin FS) 29.6 SECONDS (26.0-38.0) 12/20/18 15:30 Sodium 137 mEq/L (136-145) 12/21/18 06:30 Potassium 3.9 mEq/L (3.5-5.1) 12/21/18 06:30 Chloride 104 mEq/L (98-107) 12/21/18 06:30 Carbon Dioxide 24.4 mEq/L (21.0-31.0) 12/21/18 06:30 Anion Gap 12.5 (7.0-16.0) 12/21/18 06:30 BUN 17 mg/dL (7-25) 12/21/18 06:30 Creatinine 1.1 mg/dL (0.7-1.3) 12/21/18 06:30 Est GFR ( Amer) > 60.0 ml/min (>90) 12/21/18 06:30 Est GFR (Non-Af Amer) > 60.0 ml/min 12/21/18 06:30 BUN/Creatinine Ratio 15.5 12/21/18 06:30 Glucose 142 mg/dL (70-105) H 12/21/18 06:30 POC Glucose 132 MG/DL (70 - 105) H 12/30/18 20:25 Calcium 9.2 mg/dL (8.6-10.3) 12/21/18 06:30 Total Bilirubin 0.5 mg/dL (0.3-1.0) 12/21/18 06:30 AST 12 U/L (13-39) L 12/21/18 06:30 ALT 12 U/L (7-52) 12/21/18 06:30 Alkaline Phosphatase 57 U/L (34-104) 12/21/18 06:30 Total Protein 6.9 gm/dL (6.0-8.3) 12/21/18 06:30 Albumin 3.8 gm/dL (4.2-5.5) L 12/21/18 06:30 Globulin 3.1 gm/dL 12/21/18 06:30 Albumin/Globulin Ratio 1.2 (1.0-1.8) 12/21/18 06:30 Triglycerides 118 mg/dL (<150) 12/20/18 18:50 Cholesterol 145 mg/dL (<200) 12/20/18 18:50 LDL Cholesterol Direct 100 mg/dL (75-193) 12/20/18 18:50 HDL Cholesterol 26 mg/dL (23-92) 12/20/18 18:50 Urine Source CLEAN C 12/20/18 14:45 Urine Color YELLOW 12/20/18 14:45 Urine Clarity CLEAR (CLEAR) 12/20/18 14:45 Urine pH 6.5 (4.6 - 8.0) 12/20/18 14:45 Ur Specific [place] 1.015 (1.005-1.030) 12/20/18 14:45 Urine Protein NEGATIVE mg/dL (NEGATIVE) 12/20/18 14:45 Urine Glucose (UA) NEGATIVE mg/dL (NEGATIVE) 12/20/18 14:45 Urine Ketones NEGATIVE mg/dL (NEGATIVE) 12/20/18 14:45 Urine Blood NEGATIVE (NEGATIVE) 12/20/18 14:45 Urine Nitrate NEGATIVE (NEGATIVE) 12/20/18 14:45 Urine Bilirubin NEGATIVE (NEGATIVE) 12/20/18 14:45 Urine Urobilinogen 1.0 E.U./dL (0.2 - 1.0) 12/20/18 14:45 Ur Leukocyte Esterase NEGATIVE (NEGATIVE) 12/20/18 14:45 Urine RBC 0-2 /hpf (0-5) H 12/20/18 14:45 Urine WBC 0-2 /hpf (0-5) 12/20/18 14:45 Ur Epithelial Cells FEW /lpf (FEW) 12/20/18 14:45 Urine Bacteria FEW /hpf (NONE SEEN) 12/20/18 14:45 Urine Mucus FEW /lpf (FEW) 12/20/18 14:45 - Physical Exam Vitals and I&O: Vital Signs Temp 97.9 F 12/30/18 20:38 Pulse 100 12/30/18 20:38 Resp 20 12/30/18 23:06 BP 104/58 12/30/18 23:06 Pulse Ox 97 12/30/18 20:38 Intake & Output 12/30/18 12/30/18 12/31/18 06:59 18:59 06:59 Intake Total 240 1000 240 Output Total 900 Balance 240 100 240 Intake: Oral 240 1000 240 Output: Urine 900 Other: # Voids 3 2 # Bowel Movements 0 1 0 Active Medications: Current Medications Acetaminophen (Tylenol) 650 mg PO Q4HR PRN PRN Reason: Mild Pain / Temp above 100 Stop: 02/18/19 17:30 Last Admin: 12/21/18 20:56 Dose: 650 mg Al Hydrox/Mg Hydrox/Simethicone (Maalox) 30 ml PO Q4HR PRN PRN Reason: GI DISTRESS Stop: 02/18/19 17:30 Cilostazol (Pletal) 100 mg PO BID [facility] Stop: 02/19/19 08:59 Last Admin: 12/30/18 16:49 Dose: 100 mg Clopidogrel Bisulfate (Plavix) 75 mg PO DAILY [facility] Stop: 02/19/19 08:59 Last Admin: 12/30/18 10:01 Dose: 75 mg Dextrose (D50w) 50 ml IVP PRN PRN PRN Reason: BS below 70&not tolerate po Stop: 02/18/19 21:08 Dextrose (Glutose 40%) 18.75 gm PO PRN PRN PRN Reason: BS below 70&tolerate po Stop: 02/18/19 21:08 Docusate Sodium (Colace) 250 mg PO QPM [facility] Stop: 02/19/19 16:59 Last Admin: 12/30/18 16:49 Dose: 250 mg Doxepin HCl (Sinequan) 50 mg PO [facility] Stop: 02/19/19 20:59 Last Admin: 12/30/18 20:26 Dose: 50 mg Fluticasone Propionate (Flonase) 2 spr NS DAILY PRN PRN Reason: ALLERGIC RHINITIS Stop: 02/18/19 21:02 Glucagon (Glucagen) 1 mg IM PRN PRN PRN Reason: BS below 70&dextrose ineffecti Stop: 02/18/19 21:08 Insulin Glargine (Lantus Insulin) 10 units SUBQ [facility] Stop: 02/19/19 20:59 Last Admin: 12/30/18 20:41 Dose: 10 unit Insulin Human Lispro (Humalog Insulin Sliding Scale) 0 units SUBQ [facility]; Protocol Stop: 02/19/19 07:29 Last Admin: 12/30/18 20:32 Dose: Not Given Labetalol HCl (Trandate) 100 mg PO [facility] Stop: 02/19/19 20:59 Last Admin: 12/30/18 20:26 Dose: 100 mg Lactulose (Cephulac) 20 gm PO [facility] Stop: 02/19/19 20:59 Last Admin: 12/30/18 20:32 Dose: Not Given Lisinopril (Zestril) 2.5 mg PO DAILY [facility] Stop: 02/19/19 08:59 Last Admin: 12/30/18 13:24 Dose: 2.5 mg Multivitamins/Vitamin C (Theragran) 1 tab PO DAILY [facility] Stop: 02/19/19 08:59 Last Admin: 12/30/18 10:07 Dose: 1 tab Sertraline HCl (Zoloft) 200 mg PO DAILY [facility]; Protocol Stop: 02/27/19 08:59 Last Admin: 12/30/18 10:07 Dose: 200 mg Simvastatin (Zocor) 10 mg PO HS [facility]; Protocol Stop: 02/19/19 20:59 Last Admin: 12/30/18 20:27 Dose: 10 mg Tramadol HCl (Ultram) 50 mg PO BID PRN PRN Reason: MOD/SEVERE PAIN Stop: 02/18/19 21:02 Last Admin: 12/30/18 20:27 Dose: 50 mg Zolpidem Tartrate (Ambien) 5 mg PO HS PRN PRN Reason: Insomnia Stop: 02/18/19 21:38 Last Admin: 12/30/18 20:27 Dose: 5 mg General: alert HEENT: NC/AT, PERRLA, EOMI, anicteric sclerae, throat clear Neck: Supple, No JVD, No thyromegaly, +2 carotid pulse wo bruit, No LAD Lungs: CTAB Cardiovascular: RRR, Normal S1, Normal S2, without murmur Abdomen: soft, non-tender, non-distended Extremities: clear Neurological: alert, other (HE HAS LEFT SIDE WEAK) Internal Medicine Assmt/Plan - Assessment Assessment: 1.HTN. 2.CVA. 3.DM. 4.DEPRESSION - Plan Plan: CONTINUE ON CURRENT MEDICATION AND DIET. Nutritional Asmnt/Malnutr-PDOC - Dietary Evaluation Malnutrition Findings (Please click <Entered> for more info): Nutritional Asmnt/Malnutrition Start: 12/23/18 18: 38 Text: Status: Active Freq: Protocol: Document 12/23/18 18:38 [email or web address] (Rec: 12/23/18 18:45 [email or web address]) Nutritional Asmnt/Malnutrition Patient General Information Nutritional Screening Moderate Risk Diagnosis PSYCHOSIS NOS Pertinent Medical Hx/Surgical Hx HTN, DM, CVA with left hemiplegia, depression. Subjective Information Pt seen lying in bed, reports decreased appetite because he doesn't like the food on current diet rx. Reports some nausea, says he typically likes to eat fish such as salmon or flounder twice a week, dislikes tilapia. Current Diet Order/ Nutrition Support Cardiac Patient / S.O Can Pertinent Medications maalox, plavix, colace, insulin, labetalol, lactulose, lisinopril, MOM, MVI Pertinent Labs Glucose 142 mg/dl; POC glucose 112-133 mg/dl (12/22 08:00- 19:59) Nutritional Hx/Data Height 1.75 m Height (Calculated Centimeters) 175.3 Current Weight (lbs) 71.668 kg Weight (Calculated Kilograms) 71.7 Weight (Calculated Grams) 27928.6 Usual body Weight (lbs) 205 % Usual Body Weight 77 [place] Body Weight 160 lb, 72.7 kg % [place] Body Weight 99 Body Mass Index (BMI) 23.3 Recent Weight Change No Weight Status Approriate GI Symptoms GI Symptoms Nausea Last BM 12/22 Difficult in: None Food Allergies No Cultural/Ethnic/Church Belief not reported Usual diet at home not reported Skin Integrity/Comment: no noted pressure injury/non- healing wounds Current %PO Good (75-100%) Estimated Nutritional Goals BEE in Kcals: Using Current wt Calories/Kcals/Kg 25-30 Kcals Calculated 0733-1560 Protein: Using Current wt Protein g/k.8-1 Protein Calculated 57-72 Fluid: ml 4545-9187 Nutritional Problem 1. Problem Problem Decreased nutrient needs- sodium- related to high blood pressure as evidenced by documented hx of HTN per medical record. Malnutrition Alert Is there a minimum of two criteria No selected? Query Text:Check all the applicable criteria. A minimum of two criteria are recommended for diagnosis of either severe or non-severe malnutrition. Malnutrition Related to Morbid Obesity Malnutrition related to morbid obesity No Intervention/Recommendation Comments Consider liberalizing diet to Regular, Low Sodium; consider consistent carbohdyrate modification if glucose trends >180. Expected Outcomes/Goals Expected Outcomes/Goals 1- Maintain PO intakes 75-100% of all meals 2- Maintain BG 80-180 mg/dl- insulin management per MD. Electronically Signed By: Chanel Ponce, MPH, RDN Clinical Dietitian 7:44 PM,
[2018-12-31] MEDS: INSULIN LISPRO SLIDING SCALE 100 UNITS/ML UNIT SUBQ SCH ×3 (06:47→16:51)
[2018-12-31] MEDS: Multivitamin Tab PO SCH (09:32)
--- NOTE | 2018-12-31 18:23 | Progress Notes ---
DATE: 12/30/2018 DATE: 12/30/2018 SUBJECTIVE: Chart was reviewed and the patient interviewed. The patient was supposed to be discharged to [place], but no beds available and his discharge was rescinded until a bed is available. [facility]# [id number]
--- NOTE | 2018-12-31 18:35 | Progress Notes ---
DATE: 12/31/2018 SUBJECTIVE: The patient was extremely angry and agitated yesterday and he was throwing himself on the floor and cursing and yelling because the patient was not discharged yesterday. The patient was not discharged because was no bed available for him to be discharged. The patient is in irritable and angry mood. Also, yesterday and for the first time, I was able to talk to the patient's who called asking about his condition. The patient's said that he cannot return home because nobody takes care of him at home and his 2 children are busy and he needs to go back to the facility. At the same time, the patient still thinks that he can return home. The patient, this morning, is still angry and is still thinking that I was a reason for him not leaving and is still paranoid. On the good note, the patient's blood sugar is decreased and yesterday evening, his blood sugar was 132 which is one of the lowest since he was admitted to the hospital. ASSESSMENT: The patient is still depressed, but he is ready for discharge when bed is available. PLAN: We will continue same medications and monitoring his behavior and working on his anger and irritability and waiting for bed opening in [place]. [facility]# [id number]
--- NOTE | 2019-01-01 05:27 | Discharge Summary ---
DATE OF DISCHARGE: 12/31/2018 PATIENT'S AGE: 58. SEX: Male. PHYSICIAN: Dr. Naranjo. FINAL DIAGNOSIS: Major depression, severe, recurrent, with psychotic features. MEDICAL DIAGNOSES: 1. Hypertension. 2. Diabetes mellitus. 3. Status post cerebrovascular accident. Please refer to the discharge summary that was dictated on 12/30/2018 and job number is [id number] that was dictated on 12/30/2018. The patient was supposed to be discharged to 12/30/2018 back to [facility], but [facility] had no beds and the patient's discharge was rescinded. [facility] accepted the patient and the patient was discharged to [facility] on 12/31/2018. No changes on his condition since the discharge summary that was done before. The patient to be followed up in [facility]. JOB# [id number]
== END 2018-12-31 17:00 | DRG 885 ==
LOC: ER 11:50 → GERO 15:00
PROVIDERS: ADMIT Psychiatry & Neurology Psychiatry; ATTEND Psychiatry & Neurology Psychiatry
DX: F33.3 Major depressive disorder, recurrent, severe with psychotic symptoms (principal); I69.354 Hemiplegia and hemiparesis following cerebral infarction affecting left non-dominant side; F03.91 Unspecified dementia, unspecified severity, with behavioral disturbance; E11.9 Type 2 diabetes mellitus without complications; I10 Essential (primary) hypertension
CPT/HCPCS: 36415-UA; 80053-TC; 80061-TC; 81001-TC; 82948-90; 83036-90; 85025-TC; 85610-TC; J1815; J1885; Z7610